=== PATIENT | female | born 2000 | race Caucasian/White ===

== ENCOUNTER 2025-03-20 12:03 | Outpatient (CLI) | payer MEDICAID, SELFPAY ==
--- OUTSIDE RECORDS SUMMARY | 2025-03-20 12:07 | XMS_ITS | Clinical Summary ---
Author Organization [facility] Address [address] [place] [id number] Care Team Providers Care Generator Repairer Name Role Phone Mey Elaine M.D. Primary Care Prov ider Source Comments [facility] is fully rolled out with thefollowing exceptions:General Clinical Research [facility] Allergies No known active allergies Medications loratadine (CLARITIN) 10 MG tablet Take 10 mg by mouth 1 time a day. 01/10/2019 Active montelukast (SINGULAIR) 10 MG tablet Take 10 mg by mouth 1 time a day. 01/10/2019 Active amoxicillin (AMOXIL) 875 MG tablet Take 875 mg by mouth every 12 hours. Active Active Problems No known active problems Family History Medical History Relation Name Comments Coronary Artery Disease Father sten ts Heart Surgery Father balloon proced ure Hypercholesterolemia Father Hypertension Father Myocardial Infarction Father Myocardial Infarction Paternal Aunt Coronary Artery Disease Paternal Grandmother bypass Hypercholesterolemia Paternal Grandmother Hypertension Paternal Grandmother Myocardial Infarction Paternal Grandmother Arrhythmia Paternal Uncle s/p ablation Myocardial Infarction Paternal Uncle Pacemaker Paternal Uncle Relation Name Status Comments Father Alive Paternal Aunt Paternal Grandmother Paternal Uncle Alive Social History Tobacco Use Types Packs/Day Years Used Date Smoking Tobacco: Never Smokeless Tobacco: Never Alcohol Use Standard Drinks/Week Comments Never 0 (1 standard drink = 0.6 oz pur e alcohol) AUDIT-C Answer Date Recorded Frequency of Alcohol Consumption Never 01/12/2019 Average Number of Drinks Not on file 019 Frequency of Binge Drinking Not on file 09/2018 Intimate Partner Violence Answer Date R ecorded If you are in a relationship , do you feel safe in that relationship? Yes 01/12/2019 Safe in relationship? (18 and older) Not on file 01/12/2019 Safety and Environment Answer Date Abner rded Do you have any concerns of physical abuse, sexual abuse, or neglect of your child? No 01/12/2019 Is an adult hurting you or your family? No 01/12/2019 Has someone ever touched you in a sexual way that was not ok with you? No 01/12/2019 Someone hurting you or family (18 and older) Not on file 01/12/2019 Historical abuse worry Not on file 9 If you have firearms in the home, are they all in locked storage AND unloaded? Not on file 01/12/2019 Comments Unknown Sex and Gender Information Value Date Recorded Sex Assigned at Not on file Legal Sex Female 4:55 PM EDT Gender Identity Not on file Sexual Orientation Not on file Last Filed Vital Signs Vital Sign Reading Time Taken Comments Blood Pressure 116/77 01/12/2019 2:26 PM EDT Pulse 80 01/12/2019 2:24 PM EDT Temperature - - Respiratory Rate 14 01/12/2019 2:24 PM EDT Oxygen Saturation - - Inhaled Oxygen Concentration - - Weight 52.7 kg (116 lb 3.2 oz) 01/12/2019 2:24 P M EDT Height 170.2 cm (5' 7.01 ) 01/12/2019 2:24 PM ED T Body Mass Index 18.2 01/12/2019 2:24 PM EDT Plan of Treatment Health Maintenance Due Date Last Done Comments MMR IMMUNIZATION (1 of 1 - S tandard series) 2003 DTAP/Tdap/Td IMMUNIZATION (1 - Tdap) 2009 VARICELLA IMMUNIZATION (1 of 2 - 13+ 2-dose series) 2015 HPV IMMUNIZATION (1 - 3-dose series) 2017 MENINGOCOCCAL B VACCINE (1 o f 2 - Standard) 2018 HEPATITIS B IMMUNIZATION (1 of 3 - 19+ 3-dose series) 2021 AMB SEASONAL FLU VACCINE (#1) 03/13/2025 COVID-19 Vaccine (1 - 2023-2 5 season) 2025 HIB IMMUNIZATION Aged Out No longer e ligible based on patient's age to complete this topic IPV IMMUNIZATION Aged Out No longer e ligible based on patient's age to complete this topic MCV4 IMMUNIZATION Aged Out No longer eligible based on patient's age to complete this topic PNEUMOCOCCAL IMMUNIZATION Aged Out No longer eligible based on patient's age to complete this topic Respiratory Syncytial Virus (RSV) <20mo Aged Out No longer eligible b ased on patient's age to complete this topic Insurance [facility] Member Subscriber Plan / Payer (Ef fective 2014-Present) Name:Harini Hilliard Relation to Subscriber:Self Name:Harini Hilliard Payer ID:[id number] (NAIC) Group ID:N/[id number] Type:HMO Medicaid Address: [place], [place] Care Teams Generator Repairer Relationship Specialty Start Date End Date Mey Elaine M.D. [id number] [facility] 9 [address] [place] [address] PCP - General External Internal Medicine 12/21/18
[2025-03-20 13:21] LABS: Hematocrit 44.7 % (37.0-47.0); Hemoglobin 14.7 g/dL (12.2-16.2); Immature Granulocytes % 0.2 %; Mean Corpuscular HGB Conc 32.9 g/dL (31.8-35.4); Mean Corpuscular Hemoglobin 28.8 pg (27.0-31.2); Mean Corpuscular Volume 87.6 fl (81-99); Nucleated Red Blood Cells % 0 %; Platelet Count 240 K/mm3 (142-424); Red Blood Count 5.10 M/mm3 (4.20-5.40); Red Cell Distribution Width-SD 39.2 fL; White Blood Count 8.9 K/mm3 (4.8-10.8)
[2025-03-20 13:45] LABS: Alanine Aminotransferase 26 U/L (12-78); Albumin Level 4.5 g/dl (3.5-5.0); Alkaline Phosphatase 71 U/L (38-126); Anion Gap 12.3 mEq/L (5-15); Aspartate Amino Transferase 31 U/L (14-36); Bilirubin,Direct 0.1 mg/dl (0.0-0.4); Bilirubin,Indirect 0.4 mg/dL (0.0-0.9); Bilirubin,Total 0.5 mg/dl (0.2-1.3); Bilirubin,Unconjugated 0.4 mg/dL (0.0-1.1); Blood Urea Nitrogen 9 mg/dl (7-17); Calcium 9.5 mg/dl (8.4-10.2); Carbon Dioxide 27 mmol/L (22.0-30.0); Chloride 105 mmol/L (98-107); Cholesterol 209 mg/dl (140-200); Creatinine,Serum 0.60 mg/dl (0.52-1.04); Estimated Glomerular Filt Rate 125 ml/min (>60); GFR (African American) 151 ML/MIN (>60); Glucose 82 mg/dl (74-100); HDL Cholesterol 102 mg/dl (40-60); Magnesium 1.8 mg/dl (1.6-2.3); Potassium 4.3 mmoL/L (3.5-5.1); Sodium 140 mmol/L (136-145); Total Protein,Serum 7.5 g/dl (6.3-8.2); Triglycerides 109 mg/dl (30-150)
[2025-03-20 14:01] LABS: Free Thyroxine Index 3.5 ug/dL (5.93-13.13); T4 (Thyroxine) 14.7 ug/dl (5.53-11.0); Triiodothryronine (T3) Uptake 24 % (23.5-40.5)
[2025-03-20 14:03] LABS: 25-OH Vitamin D, Total 29.1 ng/mL (30-100)
[2025-03-20 14:47] LABS: Thyroid Stimulating Hormone 0.88 uIU/mL (0.465-4.68)
== END 2025-03-20 23:59 | disposition home or self-care (01) ==
PROVIDERS: PCP Family Medicine; Visit Provider Internal Medicine
DX: I49.1 Atrial premature depolarization (principal); I47.10 Supraventricular tachycardia, unspecified; R94.31 Abnormal electrocardiogram [ECG] [EKG]; R07.9 Chest pain, unspecified
CPT/HCPCS: 36415; 80048; 80061; 80076; 82306; 83735; 84436; 84443; 84479; 85025; 93270

== ENCOUNTER 2025-03-28 12:53 | Outpatient (CLI) | payer MEDICAID, SELFPAY ==
--- OUTSIDE RECORDS SUMMARY | 2025-03-28 12:55 | XMS_ITS | Clinical Summary ---
Author Organization [facility] Address [address] [place] [address] Care Team Providers Care Strip Presser Name Role Phone Mey Elaine M.D. Primary Care Prov ider Source Comments [facility] is fully rolled out with thefollowing exceptions:General Clinical Research [facility] Allergies No known active allergies Medications loratadine [...] patient's age to complete this topic Insurance [facility] Member Subscriber Plan / Payer (Ef fective 2014-Present) Name:Harini Hilliard Relation to Subscriber:Self Name:Harini Hilliard Payer ID:[id number] (NAIC) Group ID:N/[id number] Type:HMO Medicaid Address: [place], [place] Care Teams Strip Presser Relationship Specialty Start Date End Date Mey Elaine M.D. [address] [facility] 9 [address] [place] [address] PCP - General External Internal Medicine 12/21/18
--- NOTE | 2025-03-28 13:00 | CA_ITS ---
APPROVED REPORT EXAM: Comprehensive 2D, Doppler, and color-flow Echocardiogram Tractor Mechanic Helper: Andie Arce RT(R) Ht: 5 ft 8 in Wt: 142lbs BSA: 1.77 BP: 137/97 mmHg Indications: chest pain, ordered as bubble study to rule out ASD, palpitations, near syncope Echo Enhancing Agent Indication: Rule out Shunt Agent(s) / Amount(s) Used: Agitated Saline 20 cc 2D Dimensions EF AP4 73.40 % GL Strain -25.7 % M-Mode Dimensions RVDd 1.63 cm (0.9-2.6) LA Diam 2.23 cm (1.9-4.0) LVDd 3.94 cm (3.5-5.7) LVDs 3.03 cm (3.5-5.7) IVSd 0.46 cm (0.6-1.1) PWd 0.56 cm (0.6-1.1) EF (Teich) 46.80% FS 23.10% EDV (Teich) 67.50 mL ESV (Teich) 35.90 mL LV Diastology E Decel Time 177 (160-240 msec) E/A Ratio 1.2 Mitral Valve MV E Max Pato. 107.0 (40-130 cm/s) MV A Velocity 91.0 (40-130 cm/s) E/A Ratio 1.18 MV PHT 52.0 ms Left Ventricle The left ventricle is normal size. Left ventricular systolic function is normal. The left ventricular ejection fraction is within the normal range. There is normal left ventricular wall thickness. There is normal LV segmental wall motion. The left ventricular diastolic function is normal. LVEF is 55% Right Ventricle The right ventricle is normal size. The right ventricular systolic function is normal. Atria The left atrium size is normal. The right atrium size is normal. Agitated saline administration demonstrates the presence of interatrial shunt. Aortic Valve The aortic valve opens well. There is no hemodynamically significant aortic valvular stenosis. No aortic regurgitation is present. Mitral Valve The mitral valve is normal in structure. No evidence of mitral valve stenosis. Trace mitral regurgitation is present. Tricuspid Valve The tricuspid valve leaflets are thin and pliable. Trace tricuspid regurgitation. There is insufficient TR jet to estimate RVSP. Pulmonic Valve The pulmonary valve is grossly normal in structure. Trace pulmonic valve regurgitation is present. Great Vessels The aortic root is normal in size. IVC is normal in size and collapses >50% with inspiration. Pericardium There is no pericardial effusion. Other Information Study Quality: Adequate Conclusion Normal biventricular systolic function. No significant valvular stenosis or regurgitation. Agitated saline administration demonstrates the presence of interatrial shunt. Electronically signed by : Alana Parkinson MD 03/29/2025 13:01:12
== END 2025-03-28 23:59 | disposition home or self-care (01) ==
LOC: RT 12:54
PROVIDERS: Visit Provider Internal Medicine
DX: I47.10 Supraventricular tachycardia, unspecified (principal); R55 Syncope and collapse; R94.31 Abnormal electrocardiogram [ECG] [EKG]
CPT/HCPCS: 93306

== ENCOUNTER 2025-04-05 10:22 | Outpatient (CLI) | payer MEDICAID, SELFPAY ==
--- OUTSIDE RECORDS SUMMARY | 2025-04-05 10:27 | XMS_ITS | Clinical Summary ---
Author Organization [facility] Address [address] [place] [address] Care Team Providers Care Computer Systems Administrator Name Role Phone Mey Elaine M.D. Primary Care Prov ider Source Comments [facility] is fully rolled out with thefollowing [...] patient's age to complete this topic Insurance [facility] Member Subscriber Plan / Payer (Ef fective 2014-Present) Name:Harini Hilliard Relation to Subscriber:Self Name:Harini Hilliard Payer ID:[id number] (NAIC) Group ID:N/[id number] Type:HMO Medicaid Address: [place], [place] Care Teams Computer Systems Administrator Relationship Specialty Start Date End Date Mey Elaine M.D. [address] [facility] 9 [address] [place] [address] PCP - General External Internal Medicine 12/21/18
[2025-04-05 10:30] VITALS: BP 125/92; BP 155/80; PULSE 109; RESP 14
--- NOTE | 2025-04-05 10:30 | CA_ITS ---
APPROVED REPORT Exam: Exercise Treadmill Technologist: Latesha Barney Stress Nurse: Karlie Olmstead Ht: 5 ft 8 in Wt: 142 lbs BSA: 1.77 m2 HR: 109 bpm BP: 125/92 mmHg Rhythm: Sinus Tachycardia Medical History Allergies: No known drug allergies Cardiac Risk Factors: FHX of CAD Stress Test Details Test: Exercise stress testing was performed using a Carlos protocol. HR Resting HR: 109 bpm Max Heart Rate (APMHR): 198.064517 bpm Target HR (85% APMHR): 168.472978 bpm Recovery HR: 125 bpm BP Resting BP: 125.0/92.0 mmHg Max BP: 155.0/80.0 mmHg Recovery BP: 132.0/87.0 mmHg ECG Stress ECG Conclusion At 4 minutes patient had chest discomfort 3/10 on painscale 1 minute recovery chest discomfort 3/10 on painscale 3 minute recovery chest discomfort 2/10 on painscale Chest discomfort resolved 5 minutes in recovery Max HR: 179 % of PM: 90% Max BP: 155/80 Mets: 10.3 Test stopped due to: Chest discomfort Less than 0.5mm upsloping ST segment changes Ashraf Treadmill score +4 (nonlimiting cp) Electronically signed by : Alana Parkinson MD 04/05/2025 23:54:45
== END 2025-04-05 23:59 | disposition home or self-care (01) ==
LOC: RT 10:23
PROVIDERS: PCP Family Medicine; Visit Provider Nurse Practitioner Family
DX: R94.31 Abnormal electrocardiogram [ECG] [EKG] (principal); R07.9 Chest pain, unspecified; R06.00 Dyspnea, unspecified
CPT/HCPCS: 93017; 93018

== ENCOUNTER 2025-04-17 12:00 | Outpatient (CLI) | payer MEDICAID, SELFPAY ==
--- OUTSIDE RECORDS SUMMARY | 2025-04-17 12:02 | XMS_ITS | Clinical Summary ---
Author Organization [facility] Address [address] [place] [address] Care Team Providers Care Body And Frame Technician Name Role Phone Mey Elaine M.D. Primary Care Prov ider Source Comments [facility] is fully rolled out with thefollowing exceptions:General Clinical Research [facility] Allergies No known active allergies Medications [...] patient's age to complete this topic Insurance [facility] Member Subscriber Plan / Payer (Ef fective 2014-Present) Name:Harini Hilliard Relation to Subscriber:Self Name:Harini Hilliard Payer ID:[id number] (NAIC) Group ID:N/A Type:HMO Medicaid Address: [place], [place] Care Teams Body And Frame Technician Relationship Specialty Start Date End Date Mey Elaine M.D. [address] [facility] 9 [address] [place] [address] PCP - General External Internal Medicine 12/21/18
--- OUTSIDE RECORDS SUMMARY | 2025-04-17 12:03 | XMS_ITS | Continuity of Care Document ---
Author Organization [facility], [facility] Address 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 Plan of Treatment Reminders Order Date Submit Date Provider Last Modified By Organization Details Last Modified Time Details Appointments None record ed. Lab None record ed. Referral None record ed. Procedures None record ed. Surgeries None record ed. Imaging None record ed. Medication Orders None record ed. Patient TargetsNo targets recorded. Patient InstructionsNo instructions recorded. Reason for Referral None Reported. Results Created Date Observation Date Name Description Value Unit Range Abnormal Flag Note LastModifiedBy Organization Detail LastModifiedTime 03/16/2003/18/2025 CHLAM YDIA/ GC AMPLI FICAT ION chlamydia trachomatis, FRANCIS Negati ve negati ve Not Available [facility] ([facility] [address] [place], [address], 03/18/2025 09:37:57 03/16/20 25 03/18/2025 CHLAM YDIA/ GC AMPLI FICAT ION neisseria gonorrhoeae, FRANCIS Negati ve negati ve Not Available [facility] ([facility]) [address] [place], [address], 03/18/2025 09:37:57 04/05/20 25 [place], thyro id No observ ation record ed. [email or web address] [facility] [address], [place], [address], 04/05/2025 12:02:33 04/05/20 25 04/05/2025 exerc isyolanda stres s test No observ ation [facility] ed[facility] [address], [place], [address], 04/06/2025 08:17:45 Result Notes None recorded. Problems Name Problem SNOMED Code Status Onset Date Resolution Date Notes Provider Name and Address Organization Details Recorded Time Suspected COVID-19 991704190 Completed 01/21/2021 Removal Reason: Problem added by user [email or web address] from the COVID-19 watch flag Andie Shipman RN [address], [place], [address], [place] [facility] 11:18:10 Environme ntal allergy 603968418 Active 2016 Sara roberto, [place] - [facility] 7 09:47:30 Subclinic al hyperthyr oidism 081223562 Active 2024 Ariana Mariano PA-C [address], [place], [address], [place] - [facility] 5 11:48:21 Problem Notes None recorded. Procedures Surgical History Date Name Laterality Status Provider Name and Address Organization Details Recorded Time 02/22/20 24 Date of Last Pap Smear completed Lashawn Herrera, [employer]ESSENGER [employer] [address], [place], [address], [place] - [facility] 03/02/2024 00:09:40 08/09/19 20 Systolic B/P less than 130 mm Hg completed Minnie Jimenez [place] - [facility] 08/09/2019 16:51:39 08/09/19 20 Diastolic B/P less than 80 mm Hg completed Minnie Jimenez [place] - [facility] 08/09/2019 16:51:41 01/30/20 17 Cryosurgery Dermatology completed Ariana Mariano PA-C [address], [place], [address], [place] [facility] 01/29/2017 16:12:21 01/09/20 17 Cryosurgery Dermatology completed Ariana Mariano PA-C [address], [place], [address], [place] [facility] 01/08/2017 16:22:59 12/26/19 17 Cryosurgery Dermatology completed Ariana Mariano PA-C [address], [place], [address], [facility] - [facility] 12/25/2016 15:32:46 Imaging Results None recorded. Procedure Notes None recorded. Medical Equipment None Reported. Allergies No known drug allergies Medications Name Sig Start Date Stop Date Status Note LastModified by Organization Details LastModified Time amoxicill in 500 mg capsule TAKE 1 CAPSULE BY MOUTH THREE (3) TIMES DAILY FOR 7 DAYS 01/08 completed Not Available Not Available Not Available buspirone 5 mg tablet 1 tablet daily per Comprehe nd 01/18 completed Not Available Not Available Not Available loratadin e 5 mg/5 mL oral solution take 10 millilit ers (10 mg) by oral route once daily for 30 days 08/23 completed loratadi ne 5 mg/5 mL oral solution ;Recorde d Status: Recorded on: 08/22/19 14 4:37PM;D iscontin ued Status: Disconti nued on: 08/23/19 14 2:20PM;U ser: [email or web address] Completi on: 12/21/19 14;Print ed: 08/22/19 14 Not Available Not Available Not Available cetirizin e 10 mg tablet TAKE 1 TABLET EVERY DAY 09/10 completed Not Available Not Available Not Available azithromy roman 250 mg tablet TAKE 2 TABLETS (500 MG) BY ORAL ROUTE ONCE DAILY FOR 1 DAY THEN 1 TABLET (250 MG) BY ORAL ROUTE ONCE DAILY FOR 4 DAYS 08/09 completed Not Available Not Available Not Available meloxicam 15 mg tablet TAKE 1 TABLET BY MOUTH EVERY DAY 03/16 completed Not Available Not Available Not Available Medrol (River) 4 mg tablets in a dose pack take as directed 09/28 completed Medrol (River) 4 mg oral tablets, dose pack;Rec orded Status: Recorded on: 09/01/19 12 5:06PM;D iscontin ued Status: Disconti nued on: 09/29/19 13 9:36AM;U ser: tra p;Printe d: 09/01/19 12 Not Available Not Available Not Available Aplisol 5 tub. unit/0.1 mL intraderm al injection solution Inject 0.1 mL by intrader mal route. 10/23 completed Not Available Not Available Not Available sulfameth oxazole 800 mg-trimet hoprim 160 mg tablet TAKE ONE (1) TABLET EVERY 12 HOURS FOR 7 DAYS 04/24 completed Not Available Not Available Not Available triamcino lone acetonide 0.1 % topical cream APPLY A THIN LAYER TO THE AFFECTED AREA(S) TOPICALL Y TWO (2) TIMES PER DAY 02/12 completed Not Available Not Available Not Available amoxicill in 500 mg tablet Take 1 tablet 3 times a day by oral route for 7 days. 01/08 completed Not Available Not Available Not Available Claritin RediTabs 10 mg disintegr ating tablet take 1 tablet (10 mg) and place on top of the tongue where it will dissolve , then swallow by oral route once daily for 30 days 10/26 completed Claritin RediTabs 10 mg oral tablet,d isintegr ating;Re corded Status: Recorded on: 05/26/20 08 4:10PM;D iscontin ued Status: Disconti nued on: 10/27/19 09 8:44AM;U ser: [email or web address] p;Est. Completi on: 07/25/19 09;Indic ation: Allergic Rhinitis - (08.4779 00);Prin elvia: 05/26/20 08 Not Available Not Available Not Available ondansetr on 8 mg disintegr ating tablet DISSOLVE ONE (1) TABLET ON TOP OF TONGUE THEN SWALLOW EVERY 8 HOURS NEEDED 09/10 completed Not Available Not Available Not Available Zantac 150 mg tablet take 1 tablet (150 mg) by oral route 2 times per day for 30 days 04/06 completed Zantac 150 mg oral tablet;R ecorded Status: Recorded on: 04/21/20 11 5:49PM;D iscontin ued Status: Disconti nued on: 04/06/20 13 10:10AM; User: [email or web address] p;Est. Completi on: 07/20/19 12;Print ed: 04/21/20 11 Not Available Not Available Not Available amoxicill in 875 mg tablet TAKE 1 TABLET BY MOUTH EVERY 12 HOURS FOR 10 DAYS 01/18 completed Not Available Not Available Not Available phenazopy ridine 100 mg tablet TAKE ONE (1) TABLET THREE (3) TIMES DAILY FOR 3 DAYS 01/08 completed Not Available Not Available Not Available erythromy roman 5 mg/gram (0.5 %) eye ointment APPLY 1 CM RIBBON INTO THE LOWER CONJUNCT IVAL SAC(S) IN THE AFFECTED EYE(S) BY OPHTHALM IC ROUTE 3 TIMES PER DAY 10/25 completed Not Available Not Available Not Available oseltamiv ir 75 mg capsule TAKE 1 CAPSULE TWICE DAILY FOR 5 DAYS 12/02 completed Not Available Not Available Not Available dexametha sone 4 mg tablet TAKE (1&1/2) TABLET EVERY DAY FOR 10 DAYS 10/23 completed Not Available Not Available Not Available Advair Diskus 250 mcg-50 mcg/dose powder for inhalatio n inhale 1 puff by inhalati on route 2 times per day in the morning and evening approxim ately 12 hours apart 04/06 completed Advair Diskus 250-50 mcg/dose inhalati on blister with device;R ecorded Status: Recorded on: 06/10/20 12 11:29AM; Disconti nued Status: Disconti nued on: 04/06/20 13 10:10AM; User: Chris [email or web address] Completi on: 06/10/20 12;Print ed: 06/10/20 12 Not Available Not Available Not Available Singulair 5 mg chewable tablet chew 1 tablet by oral route daily 07/27 completed Singulai r 5 mg oral tablet,c hewable; Recorded Status: Recorded on: 05/10/20 12 4:37PM;D iscontin ued Status: Disconti nued on: 07/27/19 13 4:13PM;U ser: [email or web address] p;Printe d: 05/10/20 12 Not Available Not Available Not Available Cortispor in 3.5 mg/mL-10, 000 unit/mL-1 % ear solution instill 4 drops into affected ear(s) by otic route 3 times per day 09/28 completed Cortispo rin 3.5-10,0 00-1 mg/mL-un it/mL-% otic solution ;Recorde d Status: Recorded on: 01/08/20 12 4:56PM;D iscontin ued Status: Disconti nued on: 09/29/19 13 9:36AM;U ser: [email or web address] p;Indica tion: Otitis Externa - ([id number]);Prin elvia: 01/08/20 12 Not Available Not Available Not Available monteluka st 10 mg tablet TAKE ONE (1) TABLET BY MOUTH EVERY DAY 09/10 completed Not Available Not Available Not Available amoxicill in 400 mg/5 mL oral suspensio n take 7.5 millilit ers by oral route 2 times a day for 10 days 05/09 completed amoxicil jama 400 mg/5 mL oral suspensi on for reconsti tution;R ecorded Status: Recorded on: 08/28/19 09 5:16PM;D iscontin ued Status: Disconti nued on: 05/09/20 09 9:09AM;U ser: [email or web address] p;Est. Completi on: 09/07/19 09;Print ed: 08/28/19 09 Not Available Not Available Not Available ibuprofen 100 mg/5 mL oral suspensio n take 10 millilit ers by oral route 3 times a day for 7 days 04/06 completed ibuprofe n 100 mg/5 mL oral suspensi on;Recor ded Status: Recorded on: 04/30/20 10 4:30PM;D iscontin ued Status: Disconti nued on: 04/06/20 13 10:10AM; User: [email or web address] p;Est. Completi on: 05/07/20 10;Print ed: 04/30/20 10 Not Available Not Available Not Available albuterol sulfate HFA 90 mcg/actua tion aerosol inhaler inhale 2 puffs by inhalati on route every 6 hours 10/23 completed Not Available Not Available Not Available brompheni ramine-ps eudoephed rine-DM 2 mg-30 mg-10 mg/5 mL oral syrup TAKE TWO (2) TEASPOON S EVERY SIX (6) HOURS FOR 7 DAYS NEEDED FOR SINUS SYMPTOMS 10/23 completed Not Available Not Available Not Available cefdinir 300 mg capsule TAKE 1 CAPSULE BY MOUTH EVERY 12 HOURS FOR 10 DAYS 04/24 completed Not Available Not Available Not Available fluticaso ne propionat e 50 mcg/actua tion nasal spray,julita pension INHALE ONE (1) SPRAY INTO EACH NOSTRIL EVERY DAY 02/21 completed Not Available Not Available Not Available loratadin e 10 mg tablet TAKE 1 TABLET EVERY DAY 09/10 completed Not Available Not Available Not Available buspirone 15 mg tablet TAKE ONE HALF (1/2) TABLET BY MOUTH IN THE MORNING 01/08 completed Not Available Not Available Not Available Atuss DM 2 mg-5 mg-15 mg/5 mL oral liquid 1 tsp po q6 hr prn 05/26 completed Atuss DM 2-5-15 mg/5 mL oral liquid;R ecorded Status: Recorded on: 04/15/20 08 10:04PM; Disconti nued Status: Disconti nued on: 05/26/20 08 3:57PM;U ser: [email or web address] p Not Available Not Available Not Available escitalop james 10 mg tablet 07/15 completed Not Available Not Available Not Available escitalop james 20 mg tablet TAKE ONE (1) TABLET BY MOUTH EVERY MORNING 01/08 completed Not Available Not Available Not Available C-Phen DM 4 mg-12.5 mg-15 mg/5 mL oral syrup take 5 millilit ers by oral route every 6 hours 10/17 completed C-Phen DM 4-12.5-1 5 mg/5 mL oral syrup;Re corded Status: Recorded on: 08/29/19 11 11:20AM; Disconti nued Status: Disconti nued on: 10/18/19 11 10:49AM; User: [email or web address] p;Indica tion: Nasal Congesti on - (4781 00);Prin elvia: 08/29/19 11 Not Available Not Available Not Available C-Phen 4 mg-12.5 mg/5 mL oral syrup take 5 millilit ers by oral route every 6 hours 08/29 completed C-Phen 4-12.5 mg/5 mL oral syrup;Re corded Status: Recorded on: 08/29/19 11 11:16AM; Disconti nued Status: Disconti nued on: 08/29/19 11 11:20AM; User: [email or web address] p;Printe d: 08/29/19 11 Not Available Not Available Not Available drospiren one 3 mg-ethiny l estradiol 0.02 mg tablet Take 1 tablet every day by oral route for 84 days. 2024 active Not Available Not Available Not Avai lable Cough DM ER 30 mg/5 mL oral suspensio n,extende d release TAKE 10 ML BY MOUTH TWICE A DAY NEEDED. 09/09 completed Not Available Not Available Not Available guaifenes in ER 600 mg tablet, extended release 12 hr TAKE 1 TABLET BY MOUTH EVERY 12 HOURS 09/09 completed Not Available Not Available Not Available Vitals Date Recorded Body height Body mass index (BMI) Body weight Body temperature Heart rate Oxygen saturation Oxygen saturation in Arterial blood by Pulse oximetry Respiratory rate Pain severity - 0-10 verbal numeric rating [Score] - Reported Systolic And Diastolic Provider Name and Address Organization Details Last Updated DateTime 5 173.99 cm 21.4 kg/m2 94381.9 2 g 97.3 [degF] 107 /min 97 % 97 % 18 /min 0 122/84 mm[Hg] Ivette Leo [place] - [facility] 5 10:57:56 Social History Question Answer Notes LastModified by Organizat ion Details LastModified Time Tobacco Smoking Status Never Smoker Ina roberto [place] - [facility] 08/08/2016 09:41:08 Do You Have An Advance Directive? No Information not available 12/01/2018 Are You Blind Or Do You Have Difficulty Seeing? No Information not available 02/15/2023 Is Blood Transfusion Acceptable In An Emergency? Yes Information not available 02/15/2023 What Is Your Level Of Caffeine Consumption? Moderate Information not available 02/15/2023 How Much Tobacco Do You Chew? None Information not available 03/18/2018 Concerns About Meeting Basic Needs (food, Housing, Heat, Etc)? No Information not available 02/15/2023 In The 14 Days Before Symptom Onset, Have You Had Close Contact With A Laboratory-confir med COVID-19 While That Case Was Ill? No Information not available 02/15/2023 In The 14 Days Before Symptom Onset, Have You Had Close Contact With A Person Who Is Under Investigation For COVID-19 While That Person Was Ill? No Information not available 02/15/2023 Have You Been To An Area Known To Be High Risk For COVID-19? No Information not available 02/15/2023 Are You Deaf Or Do You Have Serious Difficulty Hearing? No [email or web address] Information not available 02/12/2023 What Type Of Diet Are You Following? REGULAR Information not available 12/01/2018 Does Family Ever Have Difficulty Making Ends Meet At The End Of The Month? No Information not available 02/15/2023 Which Illicit Or Recreational Drugs Have You Used? None Information not available 03/18/2018 Have You Directly Handled Bats, Rodents, Or Primates From Ebola Endemic Areas? No Information not available 02/15/2023 Have You Processed Blood Or Body Fluids From An Ebola Virus Disease Patient Without Appropriate PPE? No Information not available 02/15/2023 Have You Had Household Contact With An Ebola Virus Disease Patient? No Information not available 02/15/2023 Have You Had Direct Contact With A Body In An Ebola-affected Area Without Appropriate PPE? No Information not available 02/15/2023 Have You Had Percutaneous (e.g. Needle Stick) Or Mucous Membrane Exposure To Blood Or Body Fluids From An Ebola Virus Disease Patient? No Information not available 02/15/2023 Have You Had Other Close Contact With An Ebola Virus Disease Patient In Health Care Facilities Or Community Settings? No Information not available 02/15/2023 Do You Reside In Or Have You Traveled To An Area Where Ebola Virus Transmission Is Active? No Information not available 02/15/2023 What Is The Highest Grade Or Level Of School You Have Completed Or The Highest Degree You Have Received? [id number] Information not available 03/16/2025 Have There Been Any Changes To Your Family Or Social Situation? No Information no t available 02/15/2023 What Is The Fluoride Status Of Your Home? Fluoridated Information not available 02/15/2023 Hard Of Hearing Or Deaf In One Or Both Ears? No Information not available 02/15/2023 Have You Recently Or Are You Planning To Travel To An Area With Zika Virus? No Information not available 02/15/2023 What Is Your Home Situation? Both Parents Information not available 02/15/2023 How Many Years Have You Used Illicit Or Recreational Drugs? 0 Information not available 02/15/2023 Legally Blind In One Or Both Eyes? No Information no t available 02/15/2023 Live Alone Or With Others? With Others Information not available 02/15/2023 Do You Have A Medical Power Of Asphalt Screed Operator? No Information not available 02/15/2023 What Was The Date Of Your Most Recent Tobacco Screening? 04/04/2025 Information not available 04/04/2025 Family Has Moved Frequently/lived With Others Due To Finances Within The Last Year? No Information not available 02/15/2023 How Many Children Do You Have? 0 Information not available 02/15/2023 What Is Your Parents' Marital Status? Information not available 02/15/2023 Do You Use Protection During Sex? No Information not available 02/15/2023 Do You Use Protection Against STDs? Usually Information not available 02/15/2023 What Is Your Relationship Status? Single Information not available 12/01/2018 Do You Use Your Seat Belt Or Car Seat Routinely? Yes Information not available 03/18/2018 Seat Belts Used Routinely Yes Information not available 02/15/2023 Are You Sexually Active? Yes [email or web address] Information not available 10/23/2021 Smoke Alarm In Home Yes Information not available 02/15/2023 Do You Have Smoke And Carbon Monoxide Detectors In Your Home? Yes Information not available 12/01/2018 Are You Passively Exposed To Smoke? No Information no t available 08/08/2016 General Stress Level Medium Information not available 02/15/2023 Do You Use Sunscreen Routinely? Yes Information not available 12/01/2018 Has Tobacco Cessation Counseling Been Provided? No [email or web address] Information not available 09/11/2023 On What Date Was Tobacco Cessation Counseling Provided? 03/16/2025 [email or web address] Information not available 03/16/2025 Do You Have Difficulty Walking Or Climbing Stairs? No Information not available 02/15/2023 Year In School 10 Informatio n not available 02/15/2023 What Contraceptive Method Was Reported At Start Of This Visit? Combined Oral Contraceptive Pills Information not available 02/15/2023 What Contraceptive Method Was Reported At End Of This Visit? Combined Oral Contraceptive Pills Information not available 02/15/2023 Do You Want To Talk About Contraception Or Prevention During Your Visit Today? No - I Do Not Want To Talk About Contraception Today Because I Am Here For Something Else Information not available 02/15/2023 How Was The Contraceptive Method Provided? Provided On Site Information no t available 02/15/2023 Do You Have Any Future Plans To Get ? No, I Don't Want To Become Information not available 02/15/2023 Which Type Of Protection Is Used? Condom Information not available 02/15/2023 Sex: Female Functional Status Question Answer Note LastModified by Organizat ion Details LastModified Time Do you or have you ever used smokeless tobacco? Never used smokeless tobacco Information not available 02/15/2023 Are you currently employed? Yes Information not available 02/15/2023 Do you have transportation difficulties? No Information not available 02/15/2023 Are you able to care for yourself independently? Yes Information not available 12/01/2018 Do you have difficulty dressing, bathing, grooming, or toileting? No Information not available 02/15/2023 Do you or have you ever used e-cigarettes or vape? Never used electronic cigarettes Information not available 02/15/2023 What is your exercise level? Moderate Information not available 03/16/2025 Do you use any illicit or recreational drugs? No [email or web address] Information not available 02/12/2023 Do you or have you ever used any other forms of tobacco or nicotine? No Information not available 02/15/2023 What is your level of alcohol consumption? None Information not available 03/18/2018 What is your status? Not Information no t available 02/15/2023 Are you able to walk independently without assistance or assistive devices? [email or web address] Information not available 02/15/2023 Do you have difficulty doing errands alone? No Information not available 02/15/2023 What is your occupation? -[email or web address] Information not available 03/16/2025 Mental Status Question Answer Note LastModified by Organizat ion Details LastModified Time Do you feel stressed (tense, restless, nervous, or anxious, or unable to sleep at night)? [id number] Information not available 02/15/2023 Do you have difficulty concentrating, remembering or making decisions? No Information no t available 02/15/2023 Are you or have you been involved with bullying? No Information not available 02/15/2023 Family History Relationship Description Onset Age of this Age Resolved Age Notes LastModified by Organization Details LastModified Time Father Heart disease Not available 2016 09:41:00 Medical History Condition Response Pancreatitis N Coronary Artery Disease N Other N Gout N Atrial Fibrillation N congenital heart disease N Kidney Stones N Blood Diseases N Hyperthyroidism N Rheumatoid arthritis N Blood Transfusion N Erectile Dysfunction N amputation N Colonoscopy N Skin Lesions N Depression Y COPD N Pneumonia N Incontinence N Murmur N Edema N Alzheimer's Disease N Migraine Headaches N Tobacco Abuse N Anxiety Disorder Y Muscle, Joint, or Bone Problems N Hemorrhoids N Obesity N Vision or Eye Problems N Restless Leg Syndrome N Arthritis N Polyps N Infertility N Mental Disorder N Carpal Tunnel N Acid Reflux (GERD) N Cancer N Varicosities N Stroke N Tendonitis N Crohn's Disease N Hypercholesterolemia N Skin Cancer N Headaches N Fibromyalgia N Irritable Bowel Syndrome N Anal Fissure N Kidney Disease N Heart Problems Y Ear or Hearing Problems N Hospitalizations N Gallstones N Kidney or Bladder Problems N Goiter N Acne N Skin Problems N Eating Disorder N De La Fuente's Esophagus N Hypertriglyceridemia N MRSA exposure N Constipation N Embolism N Vitamin B12 Deficiency N Deviated Septum N Tuberculosis N AIDS/HIV N Myocardial Infarction N Asthma N Mitral Valve Disorders N Vertigo N Hepatitis N Thyroid Cancer N Neuropathy N Pulmonary Embolism N History of DVT N Herniated Disc N Chronic Ear Infections N Chicken Pox N Autism Spectrum Disorder (ASD) N Von Willebrands Disease N Thrombophilias N Breast Cancer N Hernia N Plantar Fasciitis N Hospital Admission Other Than N Lung Disease N Hypothyroidism N Defects or Inherited Disease N Developmental or Behavioral Disorders N Breast Problem N Difficulty Swallowing N Ovarian Cyst N Anesthesia Complications N Testosterone Deficiency N Meniere's disease N Head Injury/Concussion N Interstitial Cystitis N Congenital Anomalies N Hypoglycemia N Blood clot N Vitamin D Deficiency N Cellulitis N Endometriosis N Bladder or Kidney Problems N Fracture N Liver Disease N Schizophrenia N Panic Disorder N Concussion N Spina Bifida N Allergies/Hayfever N Osteoarthritis N Parkinson's Disease N Disc Protrusion N STI N Esophagitis N Angina N Thyroid Problems N GI Problems N ADD/ADHD N Anemia N Multiple Sclerosis N Abnormal PAP N Lumbago N Mental Illness N Psychiatric Illness N Ovarian Cancer N Diabetes N Bedwetting N Degenerative Disc Disease N Seizures/Epilepsy N Congestive Heart Failure (CHF) N Syncope N Hyperlipidemia N Insomnia N Eczema N Abuse/Domestic Violence N Attention Deficient Disorder N Dementia N Diverticulitis N Ulcerative colitis N Cerebrovascular Disease N Depression N Guillain-Atwood N Sleep Apnea N Aneurysm N Bronchitis N Heart Disease N Suicidal Ideation N Pre-Eclampsia N Hypertension N Osteoporosis N Gynecological History Statement/Question Response Abnormal Pap N Flow Light Date of LMP 03/11/2025 On BCP's at Conception? Y Post Menopausal Bleeding N STIs/STDs N HPV Vaccine Y Duration of Flow (days) 4 Current Control Method BCPs Age at Menarche 13 Last Annual Exam/Provider 03-16-25 Frequency of Cycle (Q days) 30 Sexually Active? Y Date of Last Cervical Culture 03/16/2025 Menses Monthly Y Date of Last Pap Smear 02/22/2024 Sexual Problems? N LMP Definite Desired Control Method BCPs Hormone Replacement Therapy N Obstetrics History GPAL:G 0 P 0 0 0 0 Immunizations Vaccine Type Date Status Note Provider Favian guerrero and Address Organization Details Recorded Time HPV, unspecified formulation 4 completed Lashawn Herrera, MESSENGER COPY [address], [place], [address], [place] - [facility] 03/16/2025 10:30:18 HPV, unspecified formulation 4 completed Lashawn Herrera, M[employer] [address], [place], [address], [place] [facility] 03/16/2025 10:30:18 Tdap 4 completed Not Available [facility] 08/13/2019 02:21:26 Hep B, adolescent or pediatric 2 completed Lashawn Herrera, MESSENGER COPY [address], [place], [address], [place] [facility] 02/15/2023 19:43:26 Hep B, adolescent or pediatric 2 completed Lashawn Herrera, MESSENGER COPY [address], [place], [address], [place] [facility] 02/15/2023 19:43:26 DTaP 2 completed Lashawn Herrera, MESSENGER COPY [address], [place], [address], [place] [facility] 02/15/2023 19:43:26 DTaP 3 completed Lashawn Herrera, MESSENGER COPY [address], [place], [address], [place] [facility] 02/15/2023 19:43:26 DTaP 3 completed Lashawn Herrera, MESSENGER COPY [address], [place], [address], [place] [facility] 02/15/2023 19:43:26 Hib (PRP-OMP) 2 completed Lashawn Herrera, MESSENGER COPY [address], [place], [address], [place] [facility] 02/15/2023 19:43:26 IPV 2 completed Lashawn Herrera, MESSENGER COPY [address], [place], [address], [place] [facility] 02/15/2023 19:43:25 IPV 3 completed Not Available [facility] 04/20/2016 06:26:09 varicella 4 completed Not Available [facility] 08/13/2019 02:21:24 meningococcal MCV4P 4 completed Lashawn Herrera, MESSENGER COPY [address], [place], [address], [place] [facility] 03/16/2025 10:30:18 HPV, unspecified formulation 4 completed Lashawn Herrera, MESSENGER COPY [address], [place], [address], [place] [facility] 03/16/2025 10:30:18 Hep B, unspecified formulation 3 completed Lashawn Herrera, MESSENGER COPY [address], [place], [address], [place] [facility] 02/15/2023 19:43:26 DTaP, unspecified formulation 3 completed [place] Ream [place] [facility] 01/11/2018 13:50:36 DTaP, unspecified formulation 4 completed [place] [facility] 01/11/2018 13:50:59 DTaP, unspecified formulation 6 completed [place] [facility] 01/11/2018 13:51:03 IPV 3 completed Lashawn Herrera, MESSENGER COPY [address], [place], [address], [place] [facility] 02/15/2023 19:43:25 IPV 4 completed Kat[place] [facility] 01/11/2018 13:53:20 IPV 6 completed [place] [facility] 01/11/2018 13:53:24 MMR 4 completed [place] [facility] 01/11/2018 13:54:07 MMR 6 completed [place] [facility] 01/11/2018 13:54:12 varicella 3 completed [place] [facility] 01/11/2018 13:54:33 Hep A, ped/adol, 2 dose 8 completed Not Available [facility] 07/30/2019 03:54:59 Hep A, ped/adol, 2 dose 9 completed Not Available [facility] 07/30/2019 03:55:36 meningococcal MCV4P 9 completed Not Available [facility] 07/30/2019 03:55:41 COVID-19, mRNA, LNP-S, PF, 100 mcg/0.5mL dose or 50 mcg/0.25mL dose 1 completed Magi Henriquez [place] [facility] 02/12/2023 15:50:46 COVID-19, mRNA, LNP-S, PF, 100 mcg/0.5mL dose or 50 mcg/0.25mL dose 1 completed Magi Henriquez [place] [facility] 02/12/2023 15:50:46 Hib-Hep B 3 completed Lashawn Baronemond, MESSENGER COPY [address], [place], [address], [place] [facility] 02/15/2023 19:43:25 pneumococcal conjugate PCV 7 4 completed Lashawn BaroneDAILY doyleN [address], [place], [address], [place] [facility] 02/15/2023 19:43:25 pneumococcal conjugate PCV 7 3 completed Lashawn Baronemond, MESSENGER COPY [address], [place], [address], [place] [facility] 02/15/2023 19:43:25 pneumococcal conjugate PCV 7 3 completed Lashawn Baronemond, MESSENGER COPY [address], [place], [address], [place] [facility] 02/15/2023 19:43:25 Hib (PRP-T) 3 completed Lashawn BaroneDAILY doyleN [address], [place], [address], [place] [facility] 02/15/2023 19:43:26 Past Encounters Encounter ID Performer Location Encounter Start Date Encounter Closed Date Diagnosis/Indication Diagnosis SNOMED-CT Code Diagnosis ICD10 Code Diagnosis IMO Codes Diagnosis Note [id number] Lashawn Baronemond, [facility] [place] [facility] [address] [place] [address] 03/16/2025 10:07:20 03/16/2025 10:34:15 Routine gynecologic examination done 3240506508 9101 Z01.419 Examinatio n of blood pressure 532807008 Z01.30 BP goal < 140/90 Depression screening 171 427468 Z13.31 PHQ-9 score of 0. Diet education 00325787 Z71.3 4108-6531 calorie diet recommende d with an emphasis on reducing sugar and refined carbohydra lenore, avoiding highly processed foods and decreasing saturated fats. She does not require dietary consult. Counseling 487072219 Z71 .82 Exercise counseljama marks. Patient encouraged to exercise 30 minutes 5 days a week. Surveillan ce of oral contraception 300313194 Z30.41 Screening for malignant neoplasm of cervix 699448236 Z12.4 Z11.8 Z11.3 Current from 2023 Bacterial disease screening 645285091 Z11.8 609116 Normal weight 71289088 Z 68.21 [id number] Ariana Mariano PA-C [facility] [address] [facility] [address] [place] [address] 03/22/2025 10:55:14 03/22/2025 11:13:25 Subclinical hyperthyroidism 245423565 E05.90 [id number] Health Concerns Section Related Observation LastModified by Organization Detai ls LastModified Time None Recorded Concern Status LastModified by Organization Details LastModified Time None Recorded Payers Encounter Date Sequence Insurance Name Policy Number Policy Mohamud Covered Member ID Mohamud Member ID Guarantor Name 03/22/2025 1 [facility] (MEDICAID HMO) Harini Hilliard [id number] Jose Hilliard Notes Date Note Type Note Provider Name and Address Organization Details Recorded Time 03/22/2025 text/html ROS as noted in the HPI Patient is a 24-year-old female who presents for follow-up of labs that were ordered by Dr. Murrell. She tells me she went to see Dr. Murrell due to chest pains and palpitations. He franky thyroid labs which showed abnormality: TSH was normal at 0.88, T3 is normal, T4 is 14.7 which is elevated. This has the picture of a subclinical hyperthyroidism. She is currently wearing a Holter monitor for the next 2 weeks so I want her to return in 2 weeks for repeat labs of TSH, free T4, free T3, as well as thyroid antibodies, and will consider treatment at that point. She was also found to have a slight decrease in VitD and I encouraged a one a day vitamin OTC. Arinaa Mariano PA-C [address], [place], [address], [facility] - [facility] 03/22/2025 11:54:37 OBGyn Episode No OBEpisode recorded.
== END 2025-04-17 23:59 | disposition home or self-care (01) ==
LOC: RT 12:01
PROVIDERS: Visit Provider Internal Medicine
DX: I49.1 Atrial premature depolarization (principal); I47.19 Other supraventricular tachycardia; I49.3 Ventricular premature depolarization; I45.9 Conduction disorder, unspecified
CPT/HCPCS: 93270; 93272

== ENCOUNTER 2025-05-02 07:25 | Outpatient (CLI) | payer MEDICAID, SELFPAY ==
--- OUTSIDE RECORDS SUMMARY | 2025-05-02 07:27 | XMS_ITS | Clinical Summary ---
Author Organization [facility] Address [address] [place] [address] Care Team Providers Care Ar Manager Name Role Phone Mey Elaine MD Primary Care Provid er Source Comments [facility] is fully rolled out with thefollowing exceptions:[facility] Allergies No known active allergies Medications [...] age to complete this topic Insurance [facility] Member Subscriber Plan / Payer (Ef fective 2014-Present) Name:Harini Hilliard Relation to Subscriber:Self Name:Harini Hilliard Payer ID:[id number] (NAIC) Group ID:N/A Type:HMO Medicaid Address: [place], [place] Care Teams Ar Manager Relationship Specialty [place] [address] [facility] [address] [place] [address] PCP - General External Internal Medicine 12/21/18
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
--- OUTSIDE RECORDS SUMMARY | 2025-05-02 07:28 | XMS_ITS | Continuity of Care Document ---
Author Organization [facility], [facility] Address [address] [place] [address] Care Team Providers Care Electronic Operator Name Role Phone ROSE MARY CABALLERO Primary Care Provider [phone] Assessment No assessment recorded. Plan of Treatment [...] Negati ve negati ve Not Available [facility] ([facility]) [address] [place], [address], 03/18/2025 09:37:57 03/16/20 25 03/18/2025 CHLAM YDIA/ GC AMPLI FICAT ION neisseria gonorrhoeae, FRANCIS Negati ve negati ve Not Available [facility] ([facility]) [address] [place], [address], 03/18/2025 09:37:57 04/05/20 25 [place], thyro id No observ ation record ed. [email or web address] [facility] [address], [place], [address], 04/05/2025 12:02:33 04/05/20 25 04/05/2025 exerc isyolanda stres s test No observ ation record ed. [facility] [address], [place], [address], 04/06/2025 08:17:45 Result Notes None recorded. Problems Name Problem SNOMED Code Status Onset Date Resolution Date Notes Provider Name and Address Organization Details Recorded Time Suspected COVID-19 937733870 Completed 01/21/2021 Removal Reason: Problem added by user [email or web address] from the COVID-19 watch flag Andie Shipman RN [address], [place], [address], [place] [facility] 11:18:10 Environme ntal allergy 661039859 Active 2016 Sara roberto, [place] - [facility] 7 09:47:30 Subclinic al hyperthyr oidism 152173471 Active 2024 Ariana Mariano PA-C [address], [place], [address], [place] [facility] 5 11:48:21 Problem Notes None recorded. Procedures Surgical History Date Name Laterality Status Provider Name and Address Organization Details Recorded Time 02/22/20 24 Date of Last Pap Smear completed Lashawn Herrera, PUMPER HELPER [address], [place], [address], [place] [facility] 03/02/2024 00:09:40 08/09/19 20 Systolic B/P less than 130 mm Hg completed Minnie Jimenez [place] - [facility] 08/09/2019 16:51:39 08/09/19 20 Diastolic B/P less than 80 mm Hg completed Minnie Jimenez [place] - [facility] 08/09/2019 16:51:41 01/30/20 17 Cryosurgery Dermatology completed Ariana Mariano PA-C [address], [place], [address], [place] [facility] 01/29/2017 16:12:21 01/09/20 17 Cryosurgery Dermatology completed Ariana Mariano PA-C [address], [place], [address], [place] [facility] 01/08/2017 16:22:59 12/26/19 17 Cryosurgery Dermatology completed Ariana Mariano PA-C [address], [place], [address], [facility] - [facility] 12/25/2016 15:32:46 Imaging Results None [...] ser: [email or web address] p;Indica tion: Otitis Externa - ([id number]);Prin elvia: 01/08/20 12 Not Available Not [...] Updated DateTime 5 173.99 cm 21.4 kg/m2 76289.9 2 g 97.3 [degF] 107 /min 97 [...] Do You Have Serious Difficulty Hearing? No [email or web address] Information not available 02/12/2023 What Type Of [...] Or The Highest Degree You Have Received? [id number] Information not available 03/16/2025 Have There Been [...] Do You Have A Medical Power Of Organ Tuner Electronic? No Information not available 02/15/2023 What Was The Date Of Your Most Recent Tobacco Screening? 04/04/2025 [email or web address] Information not available 04/04/2025 Family Has Moved [...] Date Was Tobacco Cessation Counseling Provided? 03/16/2025 Information not available 03/16/2025 Do You Have [...] use any illicit or recreational drugs? No [email or web address] Information not available 02/12/2023 Do you or [...] not available 02/15/2023 What is your occupation? -[email or web address] Information not available 03/16/2025 Mental Status Question Answer Note LastModified by Organizat ion Details LastModified Time Do you feel stressed (tense, restless, nervous, or anxious, or unable to sleep at night)? [id number] Information not available 02/15/2023 Do you have [...] Response Pancreatitis N Coronary Artery Disease N Gout N Other N Atrial Fibrillation N congenital heart disease N Kidney Stones N Blood Diseases N Hyperthyroidism N Blood Transfusion N Rheumatoid arthritis N Erectile Dysfunction N amputation N Colonoscopy N Skin Lesions N Depression Y COPD N Pneumonia N Incontinence N Murmur N Edema N Alzheimer's Disease N Migraine Headaches N Tobacco Abuse N Anxiety Disorder Y Hemorrhoids N Muscle, Joint, or Bone Problems N Obesity N Vision or Eye Problems N Arthritis N Restless Leg Syndrome N Polyps N Infertility N Mental Disorder N Carpal Tunnel N Acid Reflux (GERD) N Cancer N Varicosities N Stroke N Tendonitis N Crohn's Disease N Hypercholesterolemia N Skin Cancer N Headaches N Fibromyalgia N Anal Fissure N Irritable Bowel Syndrome N Kidney Disease N Heart Problems Y [...] or Kidney Problems N Liver Disease N Panic Disorder N Schizophrenia N Concussion N Spina Bifida N Allergies/Hayfever N Osteoarthritis N Parkinson's Disease N Disc Protrusion N STI N Esophagitis N Angina N Thyroid Problems N GI Problems N ADD/ADHD N Anemia N Multiple Sclerosis N Abnormal PAP N Lumbago N Mental Illness N Psychiatric Illness N Diabetes N Ovarian Cancer N Bedwetting N Degenerative Disc Disease N Seizures/Epilepsy N Congestive Heart Failure (CHF) N Hyperlipidemia N Syncope N Insomnia N Eczema N Abuse/Domestic Violence N Attention Deficient Disorder N Diverticulitis N Dementia N Ulcerative colitis N Cerebrovascular Disease N Depression N Guillain-Waldorf N Sleep Apnea N Aneurysm N Bronchitis N Heart Disease N Suicidal Ideation N Pre-Eclampsia N Hypertension N Osteoporosis N Gynecological History Statement/Question Response Abnormal Pap N Flow Light Date of LMP 03/11/2025 On BCP's at Conception? Y Post Menopausal Bleeding N STIs/STDs N HPV Vaccine Y Duration of Flow (days) 4 Current Control Method BCPs Age at Menarche 13 Last Annual Exam/Provider 03-16-25/SEP Frequency of Cycle (Q days) 30 Sexually [...] HPV, unspecified formulation 4 completed Lashawn Herrera, PUMPER HELPER [address], [place], [address], [place] [facility] 03/16/2025 10:30:18 HPV, unspecified formulation 4 completed Lashawn Herrera, PUMPER HELPER [address], [place], [address], [place] [facility] 03/16/2025 10:30:18 Tdap 4 completed Not Available [facility] 08/13[facility] 02:21:26 Hep B, adolescent or pediatric 2 completed Lashawn Herrera, PUMPER HELPER [address], [place], [address], [place] [facility] 02/15/2023 19:43:26 Hep B, adolescent or pediatric 2 completed Lashawn Herrera, PUMPER HELPER [address], [place], [address], [place] [facility] 02/15/2023 19:43:26 DTaP 2 completed Lashawn Herrera, PUMPER HELPER [address], [place], [address], [place] [facility] 02/15/2023 19:43:26 DTaP 3 completed Lashawn Herrera, PUMPER HELPER [address], [place], [address], [place] [facility] 02/15/2023 19:43:26 DTaP 3 completed Lashawn Herrera, PUMPER HELPER [address], [place], [address], [place] [facility] 02/15/2023 19:43:26 Hib (PRP-OMP) 2 completed Lashawn Herrera, PUMPER HELPER [address], [place], [address], [place] [facility] 02/15/2023 19:43:26 IPV 2 completed Lashawn Herrera, PUMPER HELPER [address], [place], [address], [place] [facility] 02/15/2023 19:43:25 IPV 3 completed Not Available [facility] 04/20/2016 06:26:09 varicella 4 completed Not Available [facility] 08/13/2019 02:21:24 meningococcal MCV4P 4 completed Lashawn Herrera, PUMPER HELPER [address], [place], [address], [place] [facility] 03/16/2025 10:30:18 HPV, unspecified formulation 4 completed Lashawn Herrera, PUMPER HELPER [address], [place], [address], [place] [facility] 03/16/2025 10:30:18 Hep B, unspecified formulation 3 completed Lashawn Herrera, PUMPER HELPER [address], [place], [address], [place] [facility] 02/15/2023 19:43:26 DTaP, unspecified formulation 3 completed Katlen Ream null, [place] [facility] 01/11/2018 13:50:36 DTaP, unspecified formulation 4 completed Katlen Ream null[place] [facility] 01/11/2018 13:50:59 DTaP, unspecified formulation 6 completed Katlen Ream null, [place] [facility] 01/11/2018 13:51:03 IPV 3 completed Lashawn Herrera, PUMPER HELPER [address], [place], [address], [place] [facility] 02/15/2023 19:43:25 IPV 4 [...] ped/adol, 2 dose 8 completed Not Available [facility] 07/30/2019 03:54:59 Hep A, ped/adol, 2 dose [...] 15:50:46 Hib-Hep B 3 completed Lashawn Baronemond, PUMPER HELPER [address], [place], [address], [place] [facility] 02/15/2023 19:43:25 pneumococcal conjugate PCV 7 4 completed Lashawn BaroneDAILY doyleN [address], [place], [address], [place] - [facility] 02/15/2023 19:43:25 pneumococcal conjugate PCV 7 3 completed Lashawn Baronemond, PUMPER HELPER [address], [place], [address], [place] [facility] 02/15/2023 19:43:25 pneumococcal conjugate PCV 7 3 completed Lashawn Baronemond, PUMPER HELPER [address], [place], [address], [place] [facility] 02/15/2023 19:43:25 Hib (PRP-T) 3 completed Lashawn BaroneDAILY doyleN [address], [place], [address], [place] [facility] 02/15/2023 19:43:26 Past Encounters Encounter ID Performer Location Encounter Start Date Encounter Closed Date Diagnosis/Indication Diagnosis SNOMED-CT Code Diagnosis ICD10 Code Diagnosis IMO Codes Diagnosis Note [id number] Lashawn Baronemond, JOVANNI [facility] [address] [place] [address] 03/16/2025 10:07:20 03/16/2025 10:34:15 Routine gynecologic examination done [id number] 9101 Z01.419 Examinatio n of blood pressure 950034665 Z01.30 BP goal < 140/90 Depression screening 171 680505 Z13.31 PHQ-9 score of 0. Diet education 58752884 Z71.3 1836-7453 calorie diet recommende d with an emphasis on reducing sugar and refined carbohydra lenore, avoiding highly processed foods and decreasing saturated fats. She does not require dietary consult. Counseling 778547697 Z71 .82 Exercise counseljama marks. Patient encouraged to exercise 30 minutes 5 days a week. Surveillan ce of oral contraception 756095283 Z30.41 Screening for malignant neoplasm of cervix 643954477 Z12.4 Z11.8 Z11.3 Current from 2023 Bacterial disease screening 837934503 Z11.8 600298 Normal weight 41770145 Z 68.21 [id number] Ariana Mariano PA-C [facility] [address] [facility] [address] [place] [address] 03/22/2025 10:55:14 03/22/2025 11:13:25 Subclinical hyperthyroidism 780365505 E05.90 [id number] Health Concerns Section Related Observation LastModified by Organization Detai ls LastModified Time None Recorded Concern Status LastModified by Organization Details LastModified Time None Recorded Payers Encounter Date Sequence Insurance Name Policy Number Policy Mohamud Covered Member ID Mohamud Member ID Guarantor Name 03/22/2025 1 [facility] (MEDICAID HMO) Harini Hilliard [id number] Jose Hilliard Notes Date Note Type Note [...] encouraged a one a day vitamin OTC. Ariana Mariano PA-C [address], [place], [address], [facility] - [facility] 03/22/2025 11:54:37 OBGyn Episode No OBEpisode recorded.
--- OUTSIDE RECORDS SUMMARY | 2025-05-02 07:28 | XMS_ITS | Continuity of Care Document ---
Author Organization [facility], [facility] Address [address] [place] [address] Care Team Providers Care Waterproof Material Folder Name Role Phone ROSE MARY CABALLERO Primary Care Provider [phone] Assessment No assessment recorded. Plan of Treatment Reminders Order Date Submit Date Provider Last Modified By Organization Details Last Modified Time Details Appointments None recorded. Lab TSH + free T4, serum 2024 025 [place] [facility], [address], [address], [place], [address], 5 10:12:53 T3, free, serum or plasma 2024 025 [place] [facility], [address], [address], [place], [address], 5 10:12:54 thyroid peroxidase (tpo) Ab, serum 2024 025 [place] [facility], [address], [address], [place], [address], 5 10:12:53 Referral None recorded. Procedures None recorded. Surgeries None recorded. Imaging US, thyroid 2024 025 [facility], [address], [place], [address], 5 07:41:38 Medication Orders None recorded. Patient TargetsNo targets recorded. Patient InstructionsNo instructions recorded. Reason for Referral None Reported. Results Created Date Observation Date Name Description Value Unit Range Abnormal Flag Note LastModifiedBy Organization Detail LastModifiedTime 03/16/2003/18/2025 CHLAM YDIA/ GC AMPLI FICAT ION chlamydia trachomatis, FRANCIS Negati ve negati ve Not Available [facility] ([facility]) [address] [place], [address], 03/18/2025 09:37:57 03/16/2003/18/2025 CHLAM YDIA/ GC AMPLI FICAT ION neisseria gonorrhoeae, FRANCIS Negati ve negati ve Not Available [facility] ([facility]) [address] [place], [address], 03/18/2025 09:37:57 04/04/2004/05/2025 TSH+F REE T4 TSH 1.470 uIU/m L 0.450- 4.500 normal Not Available [facility] ([facility]) [address] [place], [address], 04/05/2025 10:12:53 04/04/20 25 04/05/2025 TSH+F REE T4 T4,free(dire ct) 1.24 NG/dL 0.82-1 .77 normal Not Available [facility] ([facility]) [address] [place], [address], 04/05/2025 10:12:53 04/04/2004/05/2025 THYRO ID PEROX IDASE (TPO) AB thyroid peroxidase (tpo) Ab 16 IU/mL 0-34 normal Not Available [facility] ([facility]) [address] [place], [address], 04/05/2025 10:12:53 04/04/20 25 04/05/2025 TRIIO DOTHY JENIFER E (T3), FREE triiodothyro nine (T3), free 3.6 pg/mL 2.0-4. 4 normal Not Available [facility] ([facility]) [address] [place], [address], 04/05/2025 10:12:54 04/05/20 25 [place], thyro id No observ ation record ed. [email or web address] [facility] [address], [place], [address], 04/05/2025 12:02:33 04/05/20 25 04/05/2025 exerc ise abrahams s test No observ ation record ed. [facility] [address], [place], [address], 04/06/2025 08:17:45 Result Notes None recorded. Problems Name Problem SNOMED Code Status Onset Date Resolution Date Notes Provider Name and Address Organization Details Recorded Time Suspected COVID-19 444785778 Completed 01/21/2021 Removal Reason: Problem added by user [email or web address] from the COVID-19 watch flag Andie Shipman RN [address], [place], [address], [place] - [facility] 1 11:18:10 Environme ntal allergy 740659335 Active 2016 Sara Aguirre [place], [place] - [facility] 7 09:47:30 Subclinic al hyperthyr oidism 722614828 Active 2024 Ariana Mariano PA-C [address], [place], [address], [place] [facility] 5 11:48:21 Problem Notes None recorded. Procedures Surgical History Date Name Laterality Status Provider Name and Address Organization Details Recorded Time 02/22/20 24 Date of Last Pap Smear completed Lashawn Herrera APRN [address], [place], [address], [place] [facility] 03/02/2024 00:09:40 08/09/19 20 Systolic B/P less than 130 mm Hg completed Minnie Jimenez [place] - [facility] 08/09/2019 16:51:39 08/09/19 20 Diastolic B/P less than 80 mm Hg completed Minnie Jimenez [place] - [facility] 08/09/2019 16:51:41 01/30/20 17 Cryosurgery Dermatology completed Ariana PAU Mariano [address], [place], [address], [place] [facility] 01/29/2017 16:12:21 01/09/20 17 Cryosurgery Dermatology completed Ariana PAU Mariano [address], [place], [address], [place] [facility] 01/08/2017 16:22:59 12/26/19 17 Cryosurgery Dermatology completed Ariana Montserrat PAU [address], [place], [address], [place] [facility] 12/25/2016 15:32:46 Imaging Results None [...] Disconti nued on: 08/23/19 14 2:20PM;U ser: reeda;Es t. Completi on: 12/21/19 14;Print ed: 08/22/19 [...] Disconti nued on: 04/06/20 13 10:10AM; User: tra Javier Completi on: 07/20/19 12;Print ed: 04/21/20 11 [...] nued on: 04/06/20 13 10:10AM; User: Chris t. Completi on: 06/10/20 12;Print ed: 06/10/20 12 Not Available Not Available Not Available Singulair 5 mg chewable tablet chew 1 tablet by oral route daily 07/27 completed Singulai r 5 mg oral tablet,valorie khan; Recorded Status: Recorded on: 05/10/20 12 4:37PM;D [...] ser: poczatek p;Indica tion: Otitis Externa - ();Prin elvia: 01/08/20 12 Not Available Not Available [...] poczatek p;Indica tion: Nasal Congesti on - ([id number] 00);Prin elvia: 08/29/19 11 Not Available Not [...] Details Last Updated DateTime 5 173.99 cm 21.1 kg/m2 61432.5 2 g 98.4 [degF] 121 /min 98 % 98 % 16 /min 0 120/84 mm[Hg] Alcira Henriquez [place] - [facility] 5 10:35:14 Social History Question Answer Notes LastModified by [...] Do You Have Serious Difficulty Hearing? No [email or web address] Information not available 02/12/2023 What Type Of [...] Or The Highest Degree You Have Received? [id number] Information not available 03/16/2025 Have There Been [...] Do You Have A Medical Power Of Restaurant Associate? No Information not available 02/15/2023 What Was The Date Of Your Most Recent Tobacco Screening? 04/04/2025 [email or web address] Information not available 04/04/2025 Family Has Moved [...] use any illicit or recreational drugs? No [email or web address] Information not available 02/12/2023 Do you or [...] not available 02/15/2023 What is your occupation? [employer] Information not available 03/16/2025 Mental Status Question Answer Note LastModified by Organizat ion Details LastModified Time Do you feel stressed (tense, restless, nervous, or anxious, or unable to sleep at night)? [id number] Information not available 02/15/2023 Do you have [...] colitis N Cerebrovascular Disease N Depression N Guillain-[place] N Sleep Apnea N Aneurysm N Heart [...] Immunizations Vaccine Type Date Status Note Provider Nam e and Address Organization Details Recorded Time HPV, unspecified formulation 4 completed Lashawn Herrera, SLEDGER [address], [place], [address], [place] [facility] 03/16/2025 10:30:18 HPV, unspecified formulation 4 completed Lashawn Herrera, SLEDGER [address], [place], [address], [place] [facility] 03/16/2025 10:30:18 Tdap 4 completed Not Available [facility] 08/13[facility] 02:21:26 Hep B, adolescent or pediatric 2 completed Lashawn Herrera, SLEDGER [address], [place], [address], [place] [facility] 02/15/2023 19:43:26 Hep B, adolescent or pediatric 2 completed Lashawn Herrera, SLEDGER [address], [place], [address], [place] [facility] 02/15/2023 19:43:26 DTaP 2 completed Lashawn Herrera, SLEDGER [address], [place], [address], [place] [facility] 02/15/2023 19:43:26 DTaP 3 completed Lashawn Baronemond, SLEDGER [address], [place], [address], [place] [facility] 02/15/2023 19:43:26 DTaP 3 completed Lashawn Herrera, SLEDGER [address], [place], [address], [place] [facility] 02/15/2023 19:43:26 Hib (PRP-OMP) 2 completed Lashawn Herrera, SLEDGER [address], [place], [address], [place] [facility] 02/15/2023 19:43:26 IPV 2 completed Lashawn Baronemond, SLEDGER [address], [place], [address], [place] [facility] 02/15/2023 19:43:25 IPV 3 completed Not Available [facility] 04/20/2016 06:26:09 varicella 4 completed Not Available [facility] 08/13/2019 02:21:24 meningococcal MCV4P 4 completed Lashawn Herrera, SLEDGER [address], [place], [address], [place] [facility] 03/16/2025 10:30:18 HPV, unspecified formulation 4 completed Lashawn Herrera, SLEDGER [address], [place], [address], [place] [facility] 03/16/2025 10:30:18 Hep B, unspecified formulation 3 completed Lashawn Herrera, SLEDGER [address], [place], [address], [place] [facility] 02/15/2023 19:43:26 DTaP, unspecified formulation 3 completed Katlen Ream null[place] [facility] 01/11/2018 13:50:36 DTaP, unspecified formulation 4 completed Katlen Ream [place] [facility] 01/11/2018 13:50:59 DTaP, unspecified formulation 6 completed Katlen Ream null[place] [facility] 01/11/2018 13:51:03 IPV 3 completed Lashawn Herrera, SLEDGER [address], [place], [address], [place] [facility] 02/15/2023 19:43:25 IPV 4 [...] ped/adol, 2 dose 8 completed Not Available [facility] 07/30/2019 03:54:59 Hep A, ped/adol, 2 dose 9 completed Not Available [facility] 07/30/2019 03:55:36 meningococcal MCV4P 9 completed Not Available [facility] 07/30/2019 03:55:41 COVID-19, mRNA, LNP-S, PF, 100 mcg/0.5mL dose or 50 mcg/0.25mL dose 1 completed Magi Henriquez [place], [place] - [facility] 02/12/2023 15:50:46 COVID-19, mRNA, LNP-S, PF, 100 mcg/0.5mL dose or 50 mcg/0.25mL dose 1 completed Magi Henriquez [place], [place] - [facility] 02/12/2023 15:50:46 Hib-Hep B 3 completed Lashawn Herrera, SLEDGER [address], [place], [address], [place] [facility] 02/15/2023 19:43:25 pneumococcal conjugate PCV 7 4 completed Lashawn Baronemond, SLEDGER [address], [place], [address], [place] [facility] 02/15/2023 19:43:25 pneumococcal conjugate PCV 7 3 completed Lashawn Herrera, SLEDGER [address], [place], [address], [place] [facility] 02/15/2023 19:43:25 pneumococcal conjugate PCV 7 3 completed Lashawn Javier, SLEDGER [address], [place], [address], [place] [facility] 02/15/2023 19:43:25 Hib (PRP-T) 3 completed Lashawn Javier, SLEDGER [address], [place], [address], [place] [facility] 02/15/2023 19:43:26 Past Encounters Encounter ID Performer Location Encounter Start Date Encounter Closed Date Diagnosis/Indication Diagnosis SNOMED-CT Code Diagnosis ICD10 Code Diagnosis IMO Codes Diagnosis Note [id number] Lashawn Herrera APRN [facility] [address] [place] [address] 03/16/2025 10:07:20 03/16/2025 10:34:15 Routine gynecologic examination done 5533938063 9101 Z01.419 Examinatio n of blood pressure 344271198 Z01.30 BP goal < 140/90 Depression screening 171 932647 Z13.31 PHQ-9 score of 0. Diet education 66846174 Z71.3 1935-3054 calorie diet recommende d with an emphasis on reducing sugar and refined carbohydra lenore, avoiding highly processed foods and decreasing saturated fats. She does not require dietary consult. Counseling 391013060 Z71 .82 Exercise counseljama marks. Patient encouraged to exercise 30 minutes 5 days a week. Surveillan ce of oral contraception 607482251 Z30.41 Screening for malignant neoplasm of cervix 938207503 Z12.4 Z11.8 Z11.3 Current from 2023 Bacterial disease screening 557463339 Z11.8 508091 Normal weight 40447781 Z 68.21 [id number] Ariana Mariano PA-C [facility] [address] [place] [address] 03/22/2025 10:55:14 03/22/2025 11:13:25 Subclinical hyperthyroidism 162778008 E05.90 [id number] Rose Mary buenrostro MD [facility] [address] [place] [address] 04/04/2025 10:31:20 04/04/2025 11:16:38 Subclinical hyperthyroidism 457027179 E05.90 [id number] Health Concerns Section Related Observation LastModified by Organization Detai ls LastModified Time None Recorded Concern Status LastModified by Organization Details LastModified Time None Recorded Payers Encounter Date Sequence Insurance Name Policy Number Policy Mohamud Covered Member ID Mohamud Member ID Guarantor Name 04/04/2025 1 [facility] ([facility] Harini Hilliard [id number] Jose Hilliard OBGyn Episode No OBEpisode recorded.
--- OUTSIDE RECORDS SUMMARY | 2025-05-02 07:28 | XMS_ITS | Data Portability ---
Author Organization [facility] Address [address] [place] [address] Care Team Providers Care Orthodontic Technician Assistant Name Role Phone ROSE MARY CABALLERO Primary Care Provider Assessment Encounter Date Assessment Date Assessment LastModified [...] T4, serum 2024 025 FORTUNATO [facility], [address], [place], [address], 5 10:12:53 T3, free, serum or plasma 2024 025 OFRTUNATO [facility], [address], [place], [address], 5 10:12:54 thyroid peroxidase (tpo) Ab, serum 2024 025 FORTUNATO [facility], [address], [place], [address], 5 10:12:53 CT + NG DNA, PCR, unspecifie d specimen 2024 025 MOORE [facility], [address], [place], [address], 5 09:37:58 rapid SARS CoV + SARS CoV 2 Ag, QL IA, respirator y specimen 2023 024 [facility], [address], [place], [address], 4 15:46:54 rapid flu (A+B) 2023 024 [facility], [address], [place], [address], 4 15:46:54 Referral None recorded. Procedures None recorded. Surgeries None recorded. Imaging US, thyroid 2024 025 [facility], [address], [place], [address], 5 07:41:38 XR, wrist, 3 or more view 2024 025 [email or web address] Not available 5 15:31:51 electromyo gram + nerve conduction study 2024 025 [facility], [address] [facility] , [place], [address], 5 16:38:27 Medication Orders drospireno ne 3 mg-ethinyl estradiol 0.02 mg tablet 2024 025 [facility], [address], [place], [address], 5 10:34:46 meloxicam 15 mg tablet 2024 025 [facility], [address], [place], [address], 10:17:08 Mucinex 600 mg tablet, extended release 2023 [facility], [address], [place], [address], 14:48:22 Delsym 12 hour 30 mg/5 mL oral suspension ,extended release 2023 [facility], [address], [place], [address], 14:48:03 Patient TargetsNo targets recorded. Patient Instructions Encounter Date Encounter Id Patient Instructions Last Modified By Organization Details Last Modified Time 03/16/2025 [id number] body mass index: care instructions Not available [...] normal test results will be retrievable through [employer] Patient Portal and that they will be notified of the availability of normal results from [employer] by phone call, text or email. Not available 03/16/2025 10:43:50 Reason for Referral None Reported. Results Created Date Observation Date Name Description Value Unit Range Abnormal Flag Note LastModifiedBy Organization Detail LastModifiedTime 05/02/20 24 05/02/2024 rapid flu (A+B) Flu negati ve Not Available [facility] [address], [place], [address], 05/02/2024 14:44:33 05/02/20 24 05/02/2024 rapid flu (A+B) Type Both A & B Not Available [facility] [address], [place], [address], 05/02/2024 14:44:33 05/02/20 24 05/02/2024 rapid SARS CoV + SARS CoV 2 Ag, QL IA, respi rator y speci men SARS CoV antigen Negati ve Not Available [facility] [address], [place], [address], 05/02/2024 14:44:13 03/16/20 25 03/18/2025 CHLAM YDIA/ GC AMPLI FICAT ION chlamydia trachomatis, FRANCIS Negati ve negati ve Not Available [facility] ([facility]) [address] [place], [address], 03/18/2025 09:37:57 03/16/2003/18/2025 CHLAM YDIA/ GC AMPLI FICAT ION neisseria gonorrhoeae, FRANCIS Negati ve negati ve Not Available [facility] ([facility]) [address] [place], [address], 03/18/2025 09:37:57 04/04/2004/05/2025 TSH+F REE T4 TSH 1.470 uIU/m L 0.450- 4.500 normal Not Available [facility] ([facility]) [address] [place], [address], 04/05/2025 10:12:53 04/04/20 25 04/05/2025 TSH+F REE T4 T4,free(dire ct) 1.24 NG/dL 0.82-1 .77 normal Not Available [facility] ([facility]) [address] [facility], [place], [address], 04/05/2025 10:12:53 04/04/20 25 04/05/2025 THYRO ID PEROX IDASE (TPO) AB thyroid peroxidase (tpo) Ab 16 IU/mL 0-34 normal Not Available [facility] ([facility]) [address] [facility], [place], [address], 04/05/2025 10:12:53 04/04/20 25 04/05/2025 TRIIO DOTHY JENIFER E (T3), FREE triiodothyro nine (T3), free 3.6 pg/mL 2.0-4. 4 normal Not Available [facility] ([facility]) [address] [facility], [place], [address], 04/05/2025 10:12:54 09/09/19 25 09/09/2024 XR, wrist , 3 or more view No observ ation record ed. [email or web address] Not Available 2024 15:19:01 09/30/19 25 09/26/2024 elect romyo gram + nerve condu ction study No observ ation record ed. [email or web address] [facility] [address], [place], [address], 10/10/2024 09:44:50 04/05/20 25 , thyro id No observ ation record ed. [email or web address] [facility] [address], [place], [address], 04/05/2025 12:02:33 04/05/20 25 04/05/2025 exerc ise stres s test No observ ation record ed. [email or web address] [facility] [address], [place], [address], 04/06/2025 08:17:45 Result Notes None recorded. Problems Name Problem SNOMED Code Status Onset Date Resolution Date Notes Provider Name and Address Organization Details Recorded Time Suspected COVID-19 429239667 Completed 01/21/2021 Removal Reason: Problem added by user [email or web address] from the COVID-19 watch flag Andie Shipman RN [address], [place], [address], [place] - [facility] 1 11:18:10 Environme ntal allergy 788262087 Active 2016 Sara roberto, [place] - [facility] 7 09:47:30 Subclinic al hyperthyr oidism 059249281 Active 2024 Ariana Mariano PA-C [address], [place], [address], [place] - [facility] 5 11:48:21 Problem Notes None recorded. Procedures Surgical History Date Name Laterality Status Provider Name and Address Organization Details Recorded Time 02/22/20 24 Date of Last Pap Smear completed Lashawn Herrera APRN [address], [place], [address], [place] - [facility] 03/02/2024 00:09:40 08/09/19 20 Systolic B/P less than 130 mm Hg completed Minnie Jimenez [place] - [facility] 08/09/2019 16:51:39 08/09/19 20 Diastolic B/P less than 80 mm Hg completed Minnie Jimenez [place] - [facility] 08/09/2019 16:51:41 01/30/20 17 Cryosurgery Dermatology completed Ariana Mariano PA-C [address], [place], [address], [place] [facility] 01/29/2017 16:12:21 01/09/20 17 Cryosurgery Dermatology completed Ariana Mariano PA-C [address], [place], [address], [place] [facility] 01/08/2017 16:22:59 12/26/19 17 Cryosurgery Dermatology completed Ariana Mariano PA-C [address], [place], [address], [place] [facility] 12/25/2016 15:32:46 Imaging Results [...] Disconti nued on: 10/27/19 09 8:44AM;U ser: tra [email or web address]. Completi on: 07/25/19 09;Indic ation: Allergic Rhinitis [...] nued on: 04/06/20 13 10:10AM; User: tra [email or web address]. Completi on: 07/20/19 12;Print ed: 04/21/20 11 [...] nued on: 04/06/20 13 10:10AM; User: Chris Reilly on: 06/10/20 12;Print ed: 06/10/20 12 Not [...] ser: [email or web address] p;Indica tion: Otitis Externa - ( 00);Prin elvia: 01/08/20 12 Not Available Not [...] [email or web address] p;Indica tion: Nasal Congesti on - (08.4781 00);Prin elvia: 08/29/19 11 Not Available Not [...] Details Last Updated DateTime 5 173.99 cm 20.9 kg/m2 51035.1 4 g 97.5 [degF] 102 /min 98 % 98 % 16 /min 7 129/80 mm[Hg] Alcira Martinez [place] - [facility] 5 14:37:35 Date Recorded Body height Pain severity - 0-10 verbal numeric rating [Score] - Reported Body mass index (BMI) Body weight Systolic And Diastolic Provider Name and Address Organization Details Last Updated DateTime 03/16/2025 173.99 cm 0 21.1 kg/m2 33771.52 g 114/70 mm[Hg] Magi Henriquez [facility] 5 10:18:49 Date Recorded Body height Body mass index (BMI) Body weight Body temperature Heart rate Oxygen saturation Oxygen saturation in Arterial blood by Pulse oximetry Respiratory rate Pain severity - 0-10 verbal numeric rating [Score] - Reported Systolic And Diastolic Provider Name and Address Organization Details Last Updated DateTime 5 173.99 cm 21.4 kg/m2 44322.9 2 g 97.3 [degF] 107 /min 97 % 97 % 18 /min 0 122/84 mm[Hg] Ivette Bailey [place] - [facility] 5 10:57:56 Date Recorded Body height Body mass index (BMI) Body weight Body temperature Heart rate Oxygen saturation Oxygen saturation in Arterial blood by Pulse oximetry Respiratory rate Pain severity - 0-10 verbal numeric rating [Score] - Reported Systolic And Diastolic Provider Name and Address Organization Details Last Updated DateTime 5 173.99 cm 21.1 kg/m2 68515.5 2 g 98.4 [degF] 121 /min 98 % 98 % 16 /min 0 120/84 mm[Hg] Alcira Henriquez [place] - [facility] 5 10:35:14 Date Recorded Body height Body temperature Heart rate Oxygen saturation Oxygen saturation in Arterial blood by Pulse oximetry Provider Name and Address Organization Details Last Updated DateTime 4 173.99 cm 98 [degF] 94 /min 98 % 98 % Andie Shipman RN [address], [place], [address], [place] - [facility] 4 14:43:53 Social History Question Answer Notes LastModified by Organizat ion Details LastModified Time Tobacco Smoking Status Never Smoker Ina roberto, [place] - [facility] 08/08/2016 09:41:08 Do You Have [...] Do You Have Serious Difficulty Hearing? No [email or web address] Information not available 02/12/2023 What Type Of [...] Or The Highest Degree You Have Received? [id number] Information not available 03/16/2025 Have There Been [...] Do You Have A Medical Power Of Director Meetings? No Information not available 02/15/2023 What Was The Date Of Your Most Recent Tobacco Screening? 04/04/2025 [email or web address] Information not available 04/04/2025 Family Has Moved [...] Date Was Tobacco Cessation Counseling Provided? 03/16/2025 [email or web address] Information not available 03/16/2025 Do You Have [...] Functional Status Question Answer Note LastModified by [employer] Details LastModified Time Do you or have [...] use any illicit or recreational drugs? No [email or web address] Information not available 02/12/2023 Do you or [...] not available 02/15/2023 What is your occupation? [employer] Information not available 03/16/2025 Mental Status Question Answer Note LastModified by Organizat ion Details LastModified Time Do you feel stressed (tense, restless, nervous, or anxious, or unable to sleep at night)? [id number] Information not available 02/15/2023 Do you have [...] colitis N Cerebrovascular Disease N Depression N Guillain-Moxee N Sleep Apnea N Aneurysm N Bronchitis [...] Time HPV, unspecified formulation 4 completed Lashawn Herrera APRN [address], [address] [place] - [facility] 03/16/2025 10:30:18 HPV, unspecified formulation 4 completed Lashawn Herrera APRN [address], [address] [place] [facility] 03/16/2025 10:30:18 Tdap 4 completed Not Available [facility] 08/13/2019 02:21:26 Hep B, adolescent or pediatric 2 completed Lashawn Herrera APRN [address], [address] [place] [facility] 02/15/2023 19:43:26 Hep B, adolescent or pediatric 2 completed Lashawn Herrera APRN [address], [address], [place] [facility] 02/15/2023 19:43:26 DTaP 2 completed Lashawn Herrera, [employer] [address], [place], [address], [place] [facility] 02/15/2023 19:43:26 DTaP 3 completed Lashawn Herrera, [employer] [address], [place], [address], [place] [facility] 02/15/2023 19:43:26 DTaP 3 completed Lashawn Herrera, [employer] [address], [place], [address], [place] [facility] 02/15/2023 19:43:26 Hib (PRP-OMP) 2 completed Lashawn Herrera, [employer] [address], [place], [address], [place] [facility] 02/15/2023 19:43:26 IPV 2 completed Lashawn Herrera, [employer] [address], [place], [address], [place] [facility] 02/15/2023 19:43:25 IPV 3 completed Not Available [facility] 04/20/2016 06:26:09 varicella 4 completed Not Available [facility] 08/13/2019 02:21:24 meningococcal MCV4P 4 completed Lashawn Herrera, [employer] [address], [place], [address], [place] [facility] 03/16/2025 10:30:18 HPV, unspecified formulation 4 completed Lashawn Herrera, [employer] [address], [place], [address], [place] [facility] 03/16/2025 10:30:18 Hep B, unspecified formulation 3 completed Lashawn Herrera, [employer] [address], [place], [address], [place] [facility] 02/15/2023 19:43:26 DTaP, unspecified formulation 3 completed Chetan roberto, [place] [facility] 01/11/2018 13:50:36 DTaP, unspecified formulation 4 completed Katlen Ream null, [place] [facility] 01/11/2018 13:50:59 DTaP, unspecified formulation 6 completed Katlen Ream null, [place] [facility] 01/11/2018 13:51:03 IPV 3 completed Lashawn Herrera, [employer] [address], [place], [address], [place] [facility] 02/15/2023 19:43:25 IPV 4 [...] ped/adol, 2 dose 8 completed [facility] 07/[facility] 03:54:59 Hep A, ped/adol, 2 dose 9 completed Not Available [facility] 07/30/2019 03:55:36 meningococcal MCV4P 9 completed Not Available [facility] 07/30/2019 03:55:41 COVID-19, mRNA, LNP-S, PF, 100 mcg/0.5mL dose or 50 mcg/0.25mL dose 1 completed Magi Henriquez null, [place] - [facility] 02/12/2023 15:50:46 COVID-19, mRNA, LNP-S, PF, 100 mcg/0.5mL dose or 50 mcg/0.25mL dose 1 completed Magi Henriquez null, [place] - [facility] 02/12/2023 15:50:46 Hib-Hep B 3 completed Lashawn Herrera, [employer] [address], [place], [address], [place] [facility] 02/15/2023 19:43:25 pneumococcal conjugate PCV 7 4 completed Lashawn Herrera, [employer] [address], [place], [address], [place] [facility] 02/15/2023 19:43:25 pneumococcal conjugate PCV 7 3 completed Lashawn Herrera, [employer] [address], [place], [address], [place] [facility] 02/15/2023 19:43:25 pneumococcal conjugate PCV 7 3 completed Lashawn Herrera, [employer] [address], [place], [address], [place] [facility] 02/15/2023 19:43:25 Hib (PRP-T) 3 antonio Herrera, [employer] [address], [place], [place], [address] [place] [address], [place] [facility] 02/15/2023 19:43:26 Past Encounters Encounter ID Performer Location Encounter Start Date Encounter Closed Date Diagnosis/Indication Diagnosis SNOMED-CT Code Diagnosis ICD10 Code Diagnosis IMO Codes Diagnosis Note [id number] Rose Mary buenrostro MD [facility] [address] [place] [address] 08/08/2016 09:28:12 08/08/2016 14:32:14 Viral syndrome 611986329 B34.9 nasal salinehumi dify aircome back if any worsening [id number] Ariana Mariano PA-C [facility] [address] [place] [address] 12/25/2016 14:50:20 12/25/2016 15:21:49 Verruca vulgaris 72750144 B07.9 [id number] Ariana Mariano PA-C [facility] [address] [place] [address] 01/08/2017 15:57:09 01/08/2017 16:24:50 Verruca vulgaris 13619684 B07.9 [id number] Ariana Mariano PA-C [facility] [address] [place] [address] 01/22/2017 15:53:56 01/22/2017 16:19:30 Verruca vulgaris 45231497 B07.9 [id number] Ariana Mariano PA-C [facility] [address] [place] [address] [address] 01/29/2017 15:51:56 01/29/2017 16:14:21 Carin vulgaris 90600472 B07.9 [id number] Ariana Mariano PA-C [facility] [address] [place] [address] [place] [address] 03/10/2017 15:58:05 03/10/2017 16:32:14 Viral upper respiratory tract infection 645483777 J06.9 [id number] Ariana Mariano PA-C [facility] [address] [place] [address] 01/11/2018 13:07:40 01/11/2018 14:07:28 Well child 430611428 Z00.129 Exercises education, guidance, and counseling 303369237 Z71.82 Active or passive immunization 342682199 Z23 Finding of body mass index 115998505 Z68.52 Diet education 43197683 Z71.3 [id number] Rose Mary buenrostro MD [address] [address] 03/18/2018 16:28:04 03/18/2018 17:44:32 Adjustment disorder with depressed mood 99484695 F43.21 Allergic rhinitis 677306 04 J30.9 [id number] Rose Mary buenrostro MD [address] [address] 08/19/2018 16:43:02 08/19/2018 17:22:07 Hordeolum externum of upper eyelid of right eye 5956931599 78753 H00.535 [id number] Rose Mary buenrostro MD [address] [place] [address] 10/25/2018 16:22:19 10/25/2018 16:56:57 Change in skin lesion 910179416 L98.9 Immunization due 7293405 08 Z28.3 Active or passive immunization 804879937 Z23 Irregular heart beat 361 056896 R00.8 Vitamin D deficiency 347 81869 E55.9 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 However, due to the tenderness and non resolve we decided to complete a 4 mm punch biopsy to rule out underlying process. [id number] Ariana Mariano PA-C [facility] [address] [place] [address] 01/10/2019 12:57:51 01/10/2019 13:15:40 Acute sinusitis 23050188 J01.90 [id number] Ariana Mariano PA-C [facility] [address] [place] [address] 07/15/2019 16:01:20 07/15/2019 16:10:02 Acute bronchitis 15134990 J20.9 [id number] Rose Mary buenrostro MD [facility] [address] [place] [address] 08/09/2019 16:19:52 08/09/2019 17:03:00 Tuberculosis screening 151976309 Z11.1 [id number] Ariana Mariano PA-C [facility] [address] [place] [address] 11/22/2020 10:51:22 11/22/2020 13:48:55 Pharyngitis 158760000 J02.9 [id number] Rose Mary buenrostro MD [facility] [address] [place] [address] 9 [place] [address] 01/18/2021 11:05:33 01/18/2021 13:09:29 Palpitations 37026886 R00.2 avoid all caffeine [id number] Cha Pelletier APRN [facility] [address] [place] [address] 10/23/2021 15:14:16 10/23/2021 16:08:39 Depression screening 165225839 Z13.89 score 0 Counseling 838755987 Z71 .82 Exercise counseljama marks. Patient encouraged to exercise 30 minutes 5 days a week. Family shira nning education 503377045 Z30.02 Screening for Chlamydia trachomatis 284153252 Z11.8 Normal bod y mass index 36710267 Z68.52 BMI 19.9 Hypertensi on screening 138364998 Z13.6 120/70 Contracept ion care management 596336263 Z30.011 Irregular periods 841305 07 N92.6 [id number] Cha Pelletier APRN [facility] [address] [place] [address] 01/22/2022 09:39:49 01/22/2022 10:36:53 Normal body mass index 57177779 Z68.52 BMI 18.9 Hypertensi on screening 461796249 Z13.6 116/70 Irregular periods 953534 07 N92.6 [id number] Shen Sharma MD [facility] [address] [place] [address] 03/11/2022 16:34:10 03/11/2022 17:05:52 Dysuria 73618294 R30.9 Acute urin malik tract infection 153794780 N39.0 [id number] Rose Mary buenrostro MD [facility] [address] [address] 04/24/2022 15:08:58 04/24/2022 15:37:26 Viral screening 871122332 Z11.52 Acute bact erial sinusitis 77869619 J01.90 [id number] Ariana Mariano PA-C [facility] [address] [place] [address] 01/08/2023 15:15:03 01/08/2023 15:35:21 Insect bite reaction 645704318 T63.481A [id number] Lashawn Herrera APRN [facility] [address] [place] [address] 02/12/2023 15:40:59 02/12/2023 16:28:04 Routine gynecologic examination done 6300264359 9101 Z01.419 Examinatio n of blood pressure 329339032 Z01.30 BP goal < 140/90 Depression screening 171 673695 Z13.31 PHQ-9 score of 0. Diet education 38329349 Z71.3 0804-2769 calorie diet recommende d with an emphasis on reducing sugar and refined carbohydra lenore, avoiding highly processed foods and decreasing saturated fats. She does not require dietary consult. Counseling 666265814 Z71 .82 Exercise counseljama marks. Patient encouraged to exercise 30 minutes 5 days a week. Irregular periods 403353 07 N92.6 Screening for Chlamydia trachomatis 772274257 Z11.8 Z11.3 Uses oral contraception 1973067 Z30.41 Normal bod y mass index 59483234 Z68.52 [id number] Lashawn BaroneJOVANNI doyle [facility] [address] [place] [address] 02/22/2024 10:59:10 02/22/2024 11:43:43 Routine gynecologic examination done 3279153945 9101 Z01.419 Examinatio n of blood pressure 144642075 Z01.30 BP goal < 140/90 Depression screening 171 160817 Z13.31 PHQ-9 score of 0. Diet education 00056478 Z71.3 8813-7203 calorie diet recommende d with an emphasis on reducing sugar and refined carbohydra lenore, avoiding highly processed foods and decreasing saturated fats. She does not require dietary consult. Counseling 375281991 Z71 .82 Exercise counseljama marks. Patient encouraged to exercise 30 minutes 5 days a week. Screening for malignant neoplasm of cervix 314583852 Z12.4 Z11.8 Z11.3 Irregular periods 578284 07 N92.6 Surveillan ce of oral contraception 408885716 Z30.41 Body mass index less than 20 197744666 Z68.1 [id number] Rose Mary buenrostro MD [facility] [address] [place] [address] 03/18/2023 16:10:05 03/18/2023 16:42:31 Viral screening 146372222 Z11.52 Allergic rhinitis 639980 04 J30.9 [id number] Ariana Mariano PA-C [facility] [address] [place] [address] 04/29/2023 13:28:43 04/29/2023 14:05:54 Viral screening 325583005 Z11.52 Muscle pain 26682336 M79 .10 Viral gastroenteritis 11 0976269 A08.4 [id number] Rose Mary buenrostro MD [facility] [address] [place] [address] 09/11/2023 13:36:38 09/11/2023 14:15:43 Fever 439269437 R50.9 Influenza caused by Influenza B virus 76978678 J10.1 [id number] [facility] [address] [place] [address] 12/03/2023 09:48:53 12/03/2023 10:32:19 Fibrocystic change of right breast 2924312834 3511095 N60.11 Body mass index less than 20 138930010 Z68.1 [id number] [facility] [address] [place] [address] 03/16/2025 10:07:20 03/16/2025 10:34:15 Routine gynecologic examination done 6328383405 9101 Z01.419 Examinatio n of blood pressure 277089699 Z01.30 BP goal < 140/90 Depression screening 171 001306 Z13.31 PHQ-9 score of 0. Diet education 56167445 Z71.3 8380-9784 calorie diet recommende d with an emphasis on reducing sugar and refined carbohydra lenore, avoiding highly processed foods and decreasing saturated fats. She does not require dietary consult. Counseling 673451227 Z71 .82 Exercise counseljama marks. Patient encouraged to exercise 30 minutes 5 days a week. Surveillan ce of oral contraception 921952909 Z30.41 Screening for malignant neoplasm of cervix 632865404 Z12.4 Z11.8 Z11.3 Current from 2023 Bacterial disease screening 045425617 Z11.8 973948 Normal weight 97007624 Z 68.21 4317866736 [id number] Rose Mary buenrostro MD [facility] [address] [address] 05/02/2024 14:34:06 05/02/2024 15:15:25 Viral screening 867082167 Z11.52 COVID-19 944557773 U07.1 [id number] Rose Mary buenrostro MD [facility] [address] [address] 09/09/2024 14:32:42 09/09/2024 15:31:51 Pain of right wrist 3766217803 38780 M25.393 [id number] Ariana Mariano PA-C [facility] [address] [place] [address] 03/22/2025 10:55:14 03/22/2025 11:13:25 Subclinical hyperthyroidism 711213414 E05.90 025768 [id number] Rose Mary buenrostro MD [facility] [address] [place] [id number] 04/04/2025 10:31:20 04/04/2025 11:16:38 Subclinical hyperthyroidism [id number] E05.90 [id number] Health Concerns Section Related Observation LastModified by Organization Detai ls LastModified Time None Recorded Concern Status LastModified by Organization Details LastModified Time None Recorded Advance Directives Directive N: Payers Insurance Date Sequence Insurance Name Policy Number Policy Mohamud Covered Member ID Mohamud Member ID Guarantor Name 04/07/2025 1 [employer] [place] (MEDICAID HMO) Harini Hilliard [id number] Jose Hilliard 10/24/2016 1 UNSPECIFIED REMIT PAYOR Jose Hilliard 10/21/2021 [place] [facility] [place] Harini Hilliard [id number] Jose Hilliard 10/05/2019 SLIDING FEE SCHEDULE - DISCOUNT Jose Hilliard 03/13/2025 [place] [facility] [place] Harini Hilliard [id number] Jose Hilliard Notes Date Note Type Note Provider Name and Address Organization Details Recorded Time 05/02/2024 text/html Mrs. Hilliard is a 24-year-old female who is here with a 2-day history of cough, congestion, sore throat and bodyaches. She denies any fevers. She has had contact with people who have tested positive for COVID. Rose Mary yeager MD [address], [place], [address], [facility] - [facility] 05/02/2024 15:17:15 09/09/2024 text/html Ms. Hilliard is a 24 yo female with right wrist pain. SHe says that the pain feels like it is inside her wrist and radiates to her 5th and first digit. No swelling and no erythema. No known injury past or present to that area. The pain is an aching pain that progresses to pain in her elbow and shoulder when it is very severe. That radiating pain will remit in 30 minutes with rest. 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 Rose Mary yeager MD [address], [place], [address], [facility] - [facility] 09/09/2024 15:21:29 03/16/2025 text/html Annual - MOBRepo rted by [...] reported per patient during visit intake. Lashawn Herrera APRN [address], [place], [address], [facility] - [facility] 03/16/2025 10:44:54 03/22/2025 text/html ROS as noted in the [...] OTC. Ariana Mariano PA-C [address], [place], [address], [place] - [facility] 03/22/2025 11:54:37 OBGyn Episode No OBEpisode recorded.
[2025-05-02 07:36] VITALS: BMI 21.6
[2025-05-02 07:44] VITALS: BP 129/82; PULSE 108; RESP 16; O2SAT 99
[2025-05-02] MEDS: IVABRADINE HCL 7.5MG TABLET 15 MG PO (07:57)
[2025-05-02] MEDS: METOPROLOL TARTRATE 25MG TABLET 75 MG (07:57)
[2025-05-02 08:07] LABS: Chloride 103 mmol/L (98-107); Potassium 4.1 mmoL/L (3.5-5.1); Sodium 139 mmol/L (136-145)
[2025-05-02 08:10] LABS: Blood Urea Nitrogen 7 mg/dl (7-17); Creatinine Clearance Estimated 127 mL/min (50-200); Creatinine,Serum 0.70 mg/dl (0.52-1.04); Estimated Glomerular Filt Rate 104 ml/min (>60); GFR (African American) 125 ML/MIN (>60)
[2025-05-02 08:11] LABS: Anion Gap 14.1 mEq/L (5-15); Calcium 9.3 mg/dl (8.4-10.2); Carbon Dioxide 26 mmol/L (22.0-30.0); Glucose 91 mg/dl (74-100)
--- NOTE | 2025-05-02 08:30 | CT_ITS ---
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 A noncontrast coronary calcium scan was performed. A CT attenuation threshold of 130 Hounsfield units (HU) was used for the detection of calcium in contiguous voxels of 1 sq mm in area to be counted as individual lesions. Bolus tracking in the ascending aorta with a threshold of 180 HU was performed. Immediately afterwards, ECG synchronized cardiac CT was then performed from the cardiac base to apex using retrospective gating with ECG tube current modulation. A total of 85 mL of Isovue 370 mg/mL contrast medium was administered at 5 mL/sec followed by a saline flush using a biphasic injection protocol. A tube voltage of 120 KVp was used. The patient received the following medications prior to the cardiac CT. 75 mg of oral metoprolol 15 mg of oral ivabradine 0.4 mg of sublingual nitroglycerin The average heart rate at the time of acquisition was 68 bpm and regular. Image Reconstruction Transaxial images were reconstructed at 0.67 mm slide thickness. Data was reviewed interactively on an advanced workstation capable of 2 and 3-dimensional displays in all conventional reconstruction formats, including multiplanar reformations, maximum intensity projections, curved multiplanar reformations, and volume rendered reconstructions. When applicable, selected routine images describing the relevant coronary anatomy and pathology were saved and sent to PACS. Complications None Technical Quality Overall image quality was good. Coronary artery opacification was adequate. Total DLP (Dose-Length Product) is 1361.6 mGy-cm. The reported value represents the total of one or more individual components during the CT acquisition of this date and at this time, and as such, the same value may appear in more than one CT report depending on the interpreting/reporting physicians. COMPARISON None FINDINGS CT Coronary Calcium Scoring LMA (Left Main Artery) = 0 LAD (Left Anterior Descending) = 0 LCX (Left Coronary Circumflex) = 0 RCA (Right Coronary Artery) = 0 Total Calcium Score = 0 using the AJ-130 method. The interpretation of the calcium heart score is based on the following continuum*: 0 = no calcified plaque detected (risk of coronary artery disease is very low ??? less than 5%) 1-10 = calcium detected in extremely minimal levels (risk of coronary diseases is still low ??? less than 10%) 11-100 = mild levels of plaque detected with certainty (mild or minimal narrowing of heart arteries is likely) 101-400 = definite,at least moderate levels of plaque detected (relatively high risk of a heart attack within 3-5 years) >401-999 = extensive levels of plaque detected (high risk of heart attack, high levels of vascular disease are present, high likelihood of at least one significant coronary narrowing) *The calcium heart score quantifies the burden of coronary calcification/plaque in the coronary arteries. The calcium heart score is not able to evaluate the presence or burden of non-calcified (i.e. soft) plaque. There is no identifiable calcification in the aortic valve, mitral annulus or mitral valve, pericardium, or myocardium. Coronary CT Angiography The coronary arterial system is right dominant. Quantitative Stenosis Grading: Left Main (LM): The left main originates normally from the left sinus of Valsalva. The LM bifurcates into the left anterior descending artery and left circumflex artery. The LM is patent with no evidence of atherosclerosis. Left Anterior Descending (LAD) and Diagonal Branches: The LAD gives off 2 diagonal branch(es). The LAD and its branches are patent with no evidence of atherosclerosis. There is no evidence of LAD-myocardial bridge. Left Circumflex (LCX) and Obtuse Marginals (OM): The LCX gives off 1 Obtuse Marginal (OM) branch(es). The LCX and its branches are patent with no evidence of atherosclerosis. Right Coronary Artery (RCA): The RCA originates normally from the right sinus of Valsalva. The RCA gives off a posterior descending artery (PDA) and posterolateral (PL) branches. The RCA and its branches are patent with no evidence of atherosclerosis. Non-Coronary Cardiac Findings: Analysis of the left ventricular (LV) structure and function was performed after 3-D reconstruction of the LV from axial images, with user-corrected automatic contouring for assessment of LV volumes and user-defined reconstruction from oblique planes for measurement of 3-D cardiac structure and function. -The left ventricle systolic function is normal. -There is no left atrial appendage filling defect. Two right pulmonary veins and two left pulmonary veins drain normally into the left atrium. -No pericardial thickening or calcification. -Central and branch pulmonary arteries in the [id number] are unremarkable. -Thoracic aorta within the visualized thoracic aortic-branches in the [id number] is unremarkable. Extracardiac Structures No significant extra-cardiac findings. Note, however, that this study is focused on the cardiac findings. IMPRESSION -Absence of coronary calcification with an Agatston score = 0 using the AJ-130 method. -No evidence of significant flow-limiting atherosclerosis of the coronary arteries. -No evidence of coronary anomalies or myocardial bridges. -CAD-RADS 0. Management recommendations per ACC/AHA guidelines*, as clinically appropriate. *Recommendations: CAD RADS 0: Reassurance. Consider non-atherosclerotic causes of chest pain. CAD RADS 1: Consider non-atherosclerotic causes of chest pain. Consider preventive therapy and risk factor modification. CAD RADS 2: Consider non-atherosclerotic causes of chest pain. Consider preventive therapy and risk factor modification, particularly for patients with nonobstructive plaque in multiple segments. CAD RADS 3: Consider further functional testing. Consider symptom-guided anti-ischemic and preventive pharmacotherapy as well as risk factor modification per published guideline statements. CAD RADS 4A: Consider further functional testing or invasive coronary angiography with revascularization per published guideline statements. Consider symptom-guided anti-ischemic and preventive pharmacotherapy as well as risk factor modification per published guideline statements. CAD RADS 4B: Invasive coronary angiography recommended with revascularization per published guideline statements. Consider symptom-guided anti-ischemic and preventive pharmacotherapy as well as risk factor modification per published guideline statements. CAD RADS 5: Consider invasive angiography and/or viability assessment with revascularization per published guideline statements. Consider symptom-guided anti-ischemic and preventive pharmacotherapy as well as risk factor modification per published guideline statements. CRITICAL RESULT None COMMUNICATION Per this written report The coronary and cardiac findings of this CCTA were reviewed, reported, and signed by Stuart Parkinson MD (Salvage Worker) Conclusion Electronically signed by : Alana Parkinson MD 05/03/2025 12:36:30
[2025-05-02 08:42] LABS: HCG Qualitative, Serum Negative (Negative)
[2025-05-02 09:05] VITALS: BP 127/89; PULSE 64; RESP 18; O2SAT 98
[2025-05-02] MEDS: NITROGLYCERIN 0.4MG SL TABLET SL (09:07)
[2025-05-02 09:09] VITALS: BP 106/62; PULSE 72; O2SAT 99
[2025-05-02] MEDS: SODIUM CHLORIDE 0.9% 10ML SYR (RAD ONLY) 10 ML IV (09:09)
[2025-05-02] MEDS: IOPAMIDOL-370 (76%);100ML BOTTLE 85 ML IV (09:09)
[2025-05-02] MEDS: 0.9 % SODIUM CHLORIDE 50 ML VIAL IV (09:09)
[2025-05-02 09:18] VITALS: BP 109/71; PULSE 70; O2SAT 98
== END 2025-05-02 09:18 | disposition home or self-care (01) ==
PROVIDERS: PCP Family Medicine; Visit Provider Internal Medicine
DX: R00.2 Palpitations (principal); R07.9 Chest pain, unspecified; R53.83 Other fatigue; R42 Dizziness and giddiness; R55 Syncope and collapse; R94.39 Abnormal result of other cardiovascular function study
CPT/HCPCS: 75574; 80048; 84703; Q9967